=== PATIENT | male | born 1950 | race Caucasian/White ===

== ENCOUNTER 2016-10-31 15:55 | Inpatient (IN) | payer BC, MEDICARE ==
[2016-10-31] MEDS ORDERED: SENNOSIDES/DOCUSATE SODIUM UD CAPSULE PO PRN (17:49)
[2016-10-31] MEDS: NOVOLOG FLEXPEN (INSULIN ASPART) 100 UNITS/ML SQ SCH ×2 (18:19→22:12)
[2016-10-31] MEDS: METOCLOPRAMIDE 10 MG TABLET PO SCH (18:32)
[2016-10-31] MEDS: NYSTATIN 15 GM POWDER TP SCH (22:05)
[2016-10-31] MEDS: ATORVASTATIN 20 MG TABLET PO SCH (22:05)
[2016-10-31] MEDS: HYDRALAZINE HCL 25 MG TABLET PO SCH (22:06)
[2016-10-31] MEDS: CARVEDILOL 3.125 MG TABLET PO SCH (22:06)
[2016-10-31] MEDS: ACETAMINOPHEN 325 MG TAB PO PRN (22:41)
[2016-11-01] MEDS: PATIENT OWN MED: METHYLPHENIDATE 5 MG PO SCH ×2 (06:59→13:19)
[2016-11-01] MEDS: HYDRALAZINE HCL 25 MG TABLET PO SCH ×3 (06:59→23:08)
[2016-11-01] MEDS: PANTOPRAZOLE SODIUM 40 MG TABLET PO SCH (06:59)
[2016-11-01] MEDS: NOVOLOG FLEXPEN (INSULIN ASPART) 100 UNITS/ML SQ SCH ×4 (08:36→23:08)
[2016-11-01] MEDS ORDERED: LEVEMIR FLEXTOUCH 100 UNIT/ML INSULIN PEN SQ SCH (10:00)
--- NOTE | 2016-11-01 10:01 | Rehab Evaluation ---
Patient Information - Patient Information Diagnosis: RTKA Ordered Treatment: PT Evaluate and Treat Status: Initial Evaluation History: Detail (The patient was admitted to [facility] to the Swing Bed Unit for ongoing rehabilitation. 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 due to groin infection on 10/07/16.) Past Medical/Surgical Hx: PAST MEDICAL/SURGICAL HISTORY Past Surgical History hemorrhoidectomy x's 2. cholecystectomy, knee scope bilateral, exploratory laparotomy -> appendectomy, colonscopy rtbka, rtaka inguinal hernia, umbilical hernia PMH - Respiratory Hx Respiratory Disorders Yes Hx Bronchitis Yes: 01/08/2015 was on anbx and steroid PMH - Cardiovascular Hx Cardiovascular Disorders Yes Hx Cardiac Catheterization Yes Hx Heart Attack Yes: 2007 Hx Coronary Stent Yes: x's 2 Comment: no problems since 2007, hasn't had to see cardiology in 5years PMH - Neuro Hx Neurological Disorders Yes Hx Neuropathy Yes: bilateral neuropathy PMH - GI Hx Gastrointestinal Disorders No Hx Abdominal Pain Yes: RUQ Hx Hiatal Hernia Yes PMH - Hx Genitourinary Disorders No PMH - Endocrine Hx Endocrine Disorders Yes Hx Diabetes Yes Hx Thyroid Disease No Hx of NIDDM Yes: well controlled PMH - Musculoskeletal Hx Musculoskeletal Disorders Yes Hx Arthritis Yes PMH - Psych Hx Psychiatric Problems No PMH - Hematology/Oncology Hx Hematology/Oncology No Disorders Hx Anemia Yes Premorbid Status: Detail (The patient reports prior to AKA his primary mobility was wheelchair mobility and he completed stairclimbing by bumping up and down on his buttocks.) Social History: Detail (The patient lives in a third story apartment with his spouse. The patient states the apartment building does not have an elevator and he was completing the stairs by bumping up on his buttocks. His bathroom has a tub/shower combination with a seat and hand held shower and a regular toilet with a grab bar. The patient stated his son is going to acquire him a tub seat with a transfer bench. Prior to hospitalization the patient's was assisting him with bathing and dressing and the patient was completing light household tasks. The patient has a wheelchair and walker with 2 wheels.) Precautions: [place], Fall, Other (contact) - Time With Patient Total Time Spent With Patient (Min): 30 Treatment Procedures: Detail (Initial Evaluation.) Subjective Information - Subjective Information Per Patient (The patient has no complaints of pain.) Objective Data - Mental Status Patient Orientation: Oriented x3 - Visual Perception Appears within normal limits for therapeutic activities - ROM Within normal limits (The patient's L LE AROM is WNL. R residual limb ROM was WNL in abduction and adduction, hip flexion and extension were not assessed at this time.) - Strength/Tone Not within normal limits (The patient's L LE strength was generally 4+ to 5/5 except for hip flexors which are 4/5. The patient's R residual limb is functional and will be formally tested at a later date.) - Bed Mobility Independent (The patient was independent with supine to sit with head of bed elevated.) - Transfers Needs Assist (The patient acheived sit to and from stand with CG for safety only . The patient completed a bed to wheelchair transfer with use of wheeled walker with CG of 1 for safety.) - Balance Balance Sitting: Good Balance Standing: Poor (The patient required use of walker for support in standing.) - Gait Detail (The patient did not ambulate.) - Special Tests Yes (Wheelchair mobility: The patient propelled his wheelchair into bathroom 11 feet x 2 with use of both UE's and L LE independently. Inspection: The patient' s incision is healing well R transfemoral amputation.) Therapy Assessment - Therapy Assessment Detail (The patient requires CG supervision for safety with mobility and is nonambulatory. The patient also exhibits LE weakness. The patient is a good Rehab candidate.) Problem List - Problem List Physical Therapy Problem List: Detail (1) Non ambulatory 2) Supervision/contact gaurding with transfers for safety. 3) Decreased LE strength) Goals - Goals Physical Therapy Goals: 1) Assess R residual limb ROM and Strength. 2) The patient will be independent with all transfers. 3) The patient will be independent with AKA HEP and follow proper AKA prosthesis preparation precautions. 4) The patient will ambulate with wheeled walker household distances with supervision for safety. 5) Increase LE strength in weakened muscles 1/3 muscle grade. Prognosis - Prognosis Good Plan - Plan Physical Therapy Plan: PT M-F 1 to 2 times a day for gait and transfer training , LE strengthening exercises.
--- NOTE | 2016-11-01 10:02 | Rehab Evaluation ---
Patient Information - Patient Information Diagnosis: deconditioning d/t AKA Ordered Treatment: OT Evaluate and Treat Status: Initial Evaluation Surgery: Yes (right BKA 10/03/16, right AKA 10/15/16) Past Medical/Surgical Hx: PAST MEDICAL/SURGICAL HISTORY Past Surgical History hemorrhoidectomy x's 2. cholecystectomy, knee scope bilateral, exploratory laparotomy -> appendectomy, colonscopy rtbka, rtaka inguinal hernia, umbilical hernia PMH - Respiratory Hx Respiratory Disorders Yes Hx Bronchitis Yes: 01/08/2015 was on anbx and steroid PMH - Cardiovascular Hx Cardiovascular Disorders Yes Hx Cardiac Catheterization Yes Hx Heart Attack Yes: 2007 Hx Coronary Stent Yes: x's 2 Comment: no problems since 2007, hasn't had to see cardiology in 5years PMH - Neuro Hx Neurological Disorders Yes Hx Neuropathy Yes: bilateral neuropathy PMH - GI Hx Gastrointestinal Disorders No Hx Abdominal Pain Yes: RUQ Hx Hiatal Hernia Yes PMH - Hx Genitourinary Disorders No PMH - Endocrine Hx Endocrine Disorders Yes Hx Diabetes Yes Hx Thyroid Disease No Hx of NIDDM Yes: well controlled PMH - Musculoskeletal Hx Musculoskeletal Disorders Yes Hx Arthritis Yes PMH - Psych Hx Psychiatric Problems No PMH - Hematology/Oncology Hx Hematology/Oncology No Disorders Hx Anemia Yes Premorbid Status: Detail (Pt lives with in a 3rd floor apartment, no elevator. He reports he "butt bumps" up and down the stairs with assist from his and son. He is Ind with meal prep and washing dishes. His is responsible for home mgmt and laundry. He has not ambulated since his BKA in August,. He has a wheelchair and a 2 wheeled walker. He has a tub/shower combination with a hand held shower and tub bench but he is getting an extended tub bench as his current one is too small. He has a standard height toilet and uses the sink for transfers. His assists with showering and dressing but he is hoping to be Ind.) Social History: Detail (Pt reports having 7 children.) Precautions: [place], Fall - Time With Patient Total Time Spent With Patient (Min): 40 Treatment Procedures: Detail (OT eval low complexity) Subjective Information - Subjective Information Per Patient Objective Data - Pain Pain Present: No - Mental Status Patient Orientation: Oriented x3 - Visual Perception Appears within normal limits for therapeutic activities (Pt wears glasses for reading.) - ROM Within normal limits (Akz UE AROM WNL throughout.) - Strength/Tone Within normal limits (Kaz UE MMT 5/5 throughout.) - Coordination Appears within normal limits for therapeutic activities - Bed Mobility Independent (Ind with supine to sit with HOB elevated and use of side rails.) - Transfers Needs Assist (CG assist for transfer from EOB to wheelchair using walker.) - Balance Balance Sitting: Good Balance Standing: Good - Sensation Intact - Gait Detail (Ambulation not assessed at this time. Pt was Ind with wheelchair mobility in his room/bathroom.) - ADL's/IADL's Detail (Pt reports he is using the urinal at this time with assist from nursing. He was able to complete oral hygiene, brushing hair and washing face at sink Indly.) Therapy Assessment - Therapy Assessment Detail (Pt presents with WNL UE function, Ind with wheelchair mobility, decreased Ind with self care activities and decreased overall endurance needed for return home.) Problem List - Problem List Occupational Therapy Problem List: Detail (1. Decreased Ind with total body dressing 2. Decreased Ind with showering 3. Decreased endurance needed for safe and Ind return home.) Goals - Goals Occupational Therapy Goals: 1. Pt will be Ind with total body dressing 2. Pt will be Ind with showering 3. Pt will demonstrated improved endurance to allow safe and Ind ADLs/IADLs. Prognosis - Prognosis Good Plan - Plan Occupational Therapy Plan: OT 2-4 days per week to address self cares, functional mobility and overall endurance.
[2016-11-01 10:18] LABS: HEMATOCRIT 26.7 % (42.0-52.0); HEMOGLOBIN 8.5 gm/dl (14.0-18.0); MEAN CELL VOLUME 96.4 fl (81-97); MEAN CORPUSCULAR HGB CONC 31.8 g/dl (32-36); PLATELET COUNT 244 K/uL (130-400); RED BLOOD COUNT 2.77 M/uL (4.40-5.70); RED CELL DISTRIBUTION WIDTH 17.3 % (11.5-14.5); WHITE BLOOD COUNT W/O DIFF 12.5 K/uL (4.2-12.2)
[2016-11-01 10:21] LABS: MEAN CORPUSCULAR HEMOGLOBIN 30.6 pg (27-33)
[2016-11-01 10:38] LABS: CREATININE 2.7 mg/dL (0.66-1.25)
[2016-11-01] MEDS: ASPIRIN 81 MG TABEC PO SCH (11:19)
[2016-11-01] MEDS: AMLODIPINE BESYLATE 5MG TAB PO SCH (11:19)
[2016-11-01] MEDS: MULTIVITAMINS/MINERALS TABLET PO SCH (11:19)
[2016-11-01] MEDS: CARVEDILOL 3.125 MG TABLET PO SCH ×2 (11:20→23:07)
[2016-11-01] MEDS ORDERED: DARBEPOETIN 100 MCG/0.5 ML SQ ONE (11:30)
--- NOTE | 2016-11-01 11:44 | History & Physical ---
History of Present Illness - Date Date of Service for History & Physical: 11/01/16 - History of Present Illness Admitting Diagnosis: Deconditioning d/t amputation above the right knee History of Present Illness: 66yo male admitted to for deconditioning after prolonged hospitalization for complications of a BKA. PMHx of CAD (stent x2), DM, PVD (s.p multiple lower extremity stents) and BKA done on 08/29/16. Patient had presented to [facility] on 10/01/16 for RLE pain for 3 days. CTA revealed an occlusion of all vasculature and patient underwent R thrombectomy, R iliac stenting and R BKA debridement on 10/03/16. He then developed a groin infection with wound vac placement on 10/07. he was admitted to [facility] on 10/08. Had severe bleeding on 10/09 from the groin that required urgent ligation of the r external iliac, superficial femoral and profunda femoris arteries and an excision of infected [employer]. Was in [facility] ICU and underwent Right AKA at that time (10/15) instead of transfer to [facility] for a axillo-femoral graft. He suffered RICARDO due to sepsis and ATN from [facility]. He was also followed by ID for groin infection. Had NG tube placed on 10/18 that was removed 10/26. He saw neuropsych and was started on ritalin for neurofatigue which was helpful. His appetite continued to improve. He did require 2 RBC transfusions on 10/19 and 10/31. He was stable for discharge but required further therapy. Patient currently resides with in 3rd story apartment. He has no way of getting up and down aside from sitting on the ground and lifting himself up and down the stairs. They are trying to obtain a 1st floor apartment. 11/01/16- Patient states he is feeling much better. States he really feels like the ritalin has turned things around for him. Says his mood and energy levels are better than ever. He denies any pain in his right stump. He denies any changes with the wound vac. He is looking forward to working with PT/OT to regain his strength. He states his diabetes medications were changed around some while in the hospital. He had previously been on metformin which was stopped due to RICARDO. He was on levemir 30units twice daily at home and they only sent him home on 18 units once daily. General - Cognitive Patterns Orientation: Oriented x3, Person, Place, Time - Communication Preferred Language?: Syriac Mobile Developer Required: No Level of Education: College Preferred Method of Learning: Seeing, Doing, Reading Comprehension Ability: No Impairment Able to Read: Yes Able to Write: Yes Select best description of speech pattern: Clear Speech Ability to express ideas and wants: Understood Understanding verbal content: Understands - Psychosocial Well-Being Usual Living Arrangement: Spouse - Physical Functioning Activity Level: Up with assist x1 Turning: Self ad kathryn ROM Ability: Limited/Compromised Assistive Devices: Wheel Chair Ambulation Ability: Dependent Bed Mobility: Independent Bathing Ability: Dependent Personal Hygiene: Needs Assist Dressing Ability: Dependent Eating (Feeding) Ability: Independent Toileting Ability: Dependent Administer Own Medication: Dependent - Continence Bowel Pattern: Diarrhea Bladder Pattern: Normal - Dental Status Unable to examine: No Broken or loosely fitting full or partial dentures: No No natural teeth or tooth fragment(s) (edentulous): Yes Abnormal mouth tissue (ulcers, masses, oral lesions, etc.): No Obvious or likely cavity or broken natural teeth: No Inflamed or bleeding gums or loose natural teeth: No Mouth/facial pain, discomfort or difficulty chewing: Yes - Nutrition Screening Poor oral intake > 1 week: No Unplanned weight loss in specified time frame: Yes Nutrition Support via tube feedings or parenteral nutrition: No Pressure Ulcer: No Significantly underweight define as BMI <18.5 kg/m2: No Albumin <2.5mg/dL: No Persistent nausea/vomiting/diarrhea >3 days: No Difficulty chewing/swallowing/mouth sores: No Admitting Diagnosis: Yes Nutrition Risk Score: High Risk Review of Systems Constitutional: Reports: Weakness. Denies: Chills, Fever Eyes: Denies: Eye pain ENT: Denies: Congestion, Dental pain Respiratory: Denies: Cough, Dyspnea Cardiovascular: Denies: Chest pain, Edema Endocrine: Denies: Fatigue Gastrointestinal: Denies: Abdominal pain, Constipation, Diarrhea, Nausea Musculoskeletal: Denies: Arthralgia Skin: Reports: Change in color (has lesion left toe that podiatry evaluated while inpatient ) Neurological: Reports: Numbness (DM neuropathy) Psychiatric: Denies: Depression Past Medical History - SOCIAL HISTORY Smoking Status: Former smoker - SURGICAL HISTORY Past Surgical History: hemorrhoidectomy x's 2. cholecystectomy, knee scope bilateral, exploratory laparotomy -> appendectomy, colonscopy. rtbka, rtaka. inguinal hernia, umbilical hernia - RESPIRATORY Hx Respiratory Disorders: Yes Hx Bronchitis: Yes (01/08/2015 was on anbx and steroid) - CARDIOVASCULAR Hx Cardio Disorders: Yes Hx Cardiac Cath: Yes Hx Heart Attack: Yes (2007) Hx Coronary Stent: Yes (x's 2) Comment:: no problems since 2007, hasn't had to see cardiology in 5years - NEURO Hx Neuro Disorders: Yes Hx Neuropathy: Yes (bilateral neuropathy) - GI Hx GI Disorders: No Hx Hiatal Hernia: Yes - Hx Genitourinary Disorders: No - ENDOCRINE Hx Endocrine Disorders: Yes Hx Diabetes: Yes Hx Thyroid Disease: No - MUSCULOSKELETAL Hx Musculoskeletal Disorders: Yes Hx Arthritis: Yes - PSYCH Hx Psych Problems: No - HEMATOLOGY/ONCOLOGY Hx Hematology/Oncology Disorders: No Hx Anemia: Yes Hx Blood Transfusions: Yes Family Medical History Any Significant Family History?: Yes Hx Cancer: Father *Cancer Comment: colorectal Hx Diabetes: Father, Brother/Sister Hx Heart Disease: Father H&P Meds/Allergies - Allergies Allergies: Allergies Allergy/AdvReac Type Severity Reaction Status Date / Time No Known Drug Allergies Allergy Verified 01/31/15 14:48 - Home Medications Home Medications Medication Instructions Recorded Confirmed Last Taken Methylphenidate HCl [Ritalin] 5 mg PO QAM 10/31/16 10/31/16 Unknown - Active Medications Active Medications: Current Medications Acetaminophen (Tylenol 325mg) 650 mg PO Q6H PRN PRN Reason: MILD PAIN OR FEVER Last Admin: 10/31/16 22:41 Dose: 650 mg Amlodipine Besylate (Norvasc) 10 mg PO DAILY [facility] Last Admin: 11/01/16 11:19 Dose: 10 mg Aspirin (Ecotrin (Ec)) 81 mg PO DAILY [facility] Last Admin: 11/01/16 11:19 Dose: 81 mg Atorvastatin Calcium (Lipitor) 40 mg PO QHS [facility] Last Admin: 10/31/16 22:05 Dose: 40 mg Carvedilol (Coreg) 6.25 mg PO BID [facility] Last Admin: 11/01/16 11:20 Dose: 6.25 mg Clonidine HCl (Catapres Tts-3) 1 each TD Q7D [facility] Hydralazine HCl (Apresoline) 25 mg PO Q8HR [facility] Last Admin: 11/01/16 06:59 Dose: 25 mg Insulin Aspart (Novolog Flexpen) 0 unit SQ TIDINS [facility] PRN Reason: Protocol Insulin Detemir (Levemir Flextouch) 18 unit SQ DAILY [facility] Last Admin: 11/01/16 11:20 Dose: 18 unit Metoclopramide HCl (Reglan) 10 mg PO WMEALS [facility] Last Admin: 10/31/16 18:32 Dose: 10 mg Miscellaneous (Remove Patch) 1 each TD Q7D [facility] Multivitamins/Minerals (Centrum) 1 tab PO DAILY [facility] Last Admin: 11/01/16 11:19 Dose: 1 tab Nystatin (Nystop) 15 gm TP BID [facility] Last Admin: 10/31/16 22:05 Dose: Not Given Oxycodone/Acetaminophen (Percocet 10-325 Mg Tablet) 1 each PO Q6H PRN PRN Reason: MODERATE TO SEVERE PAIN Pantoprazole Sodium (Protonix) 40 mg PO DAILYAC [facility] Last Admin: 11/01/16 06:59 Dose: 40 mg Patient Own Med: (Methylphenidate 5 Mg) 1 each PO 0700,1200 [facility] Last Admin: 11/01/16 06:59 Dose: 1 each Senna/Docusate Sodium (Senna Plus) 2 each PO BID PRN PRN Reason: CONSTIPATION Last Admin: 11/01/16 11:20 Dose: 2 each Physical Exam - Vital Signs Vital Signs: Vital Signs - Last 24 Hrs Temp Pulse Resp BP BP Pulse Ox 11/01/16 10:50 98.6 F 109/63 11/01/16 08:00 98.6 F 71 18 104/58 97 10/31/16 20:00 98.6 F 71 18 109/63 97 10/31/16 16:30 98.3 F 74 18 98/62 97 - General General Appearance: Alert, Oriented x3, Cooperative, No acute distress - Head Head exam: Normal inspection - Eye Eye exam: Normal appearance, PERRL - ENT ENT exam: Normal exam, Mucous membranes moist, Normal external ear exam, Normal orophraynx, TM's normal bilaterally Ear exam: Normal external inspection. negative: External canal tenderness Nasal Exam: Normal inspection. negative: Discharge, Sinus tenderness Mouth exam: Normal external inspection, Tongue normal Teeth exam: Normal inspection. negative: Dental caries Throat exam: Normal inspection. negative: Tonsillar erythema, Tonsillar exudate - Neck Neck exam: Normal inspection, Full ROM. negative: Tenderness - Respiratory Respiratory exam: Normal lung sounds bilaterally. negative: Respiratory distress - Cardiovascular Cardiovascular Exam: Regular rate, Normal rhythm, Normal heart sounds - GI/Abdominal GI/Abdominal exam: Soft, Normal bowel sounds. negative: Tenderness - Rectal Rectal exam: Deferred - exam: Deferred - Back Back exam: Reports: Other (right AKA. ) - Neurological Neurological exam: Abnormal gait, Alert, Oriented X3, Reflexes normal - Psychiatric Psychiatric exam: Normal affect, Normal mood - Skin Skin exam: Dry, Warm, Other (right AKA wound healing very well) H&P Results - Labs Result Diagrams: 11/01/16 10:10 11/01/16 10:10 Labs Last 24 Hours: Laboratory Results - last 24 hr 10/31/16 11/01/16 11/01/16 17:00 07:29 10:10 WBC 12.5 H RBC 2.77 L Hgb 8.5 L Hct 26.7 L MCV 96.4 MCH 30.6 MCHC 31.8 L RDW 17.3 H Plt Count 244 MPV 9.0 Neutrophils % 71.0 Eosinophils % Not Reportable Basophils % Not Reportable Lymphocytes 19.0 Monocytes 10.0 H Sodium Potassium Chloride Carbon Dioxide Anion Gap BUN Creatinine Estimated GFR POC Glucose 243 H 250 H Random Glucose Calcium 11/01/16 10:10 WBC RBC Hgb Hct MCV MCH MCHC RDW Plt Count MPV Neutrophils % Eosinophils % Basophils % Lymphocytes Monocytes Sodium 138 Potassium 4.0 Chloride 102 Carbon Dioxide 27.0 Anion Gap 9.0 BUN 45 H Creatinine 2.7 H Estimated GFR 25 POC Glucose Random Glucose 338 H Calcium 7.8 L Discharge Potential - Discharge Needs Community Services Used Prior to Admission: Occupational Therapy, Physical Therapy, Transportation Patient Discharge Plan Description: Return Home Community Services Needed at Discharge: Occupational Therapy, Physical Therapy, Transportation, Pathways to Better Health Plan - Swing Bed Certification Initial Certification Due: 10/31/16 14 Day Re-Cert Due: 11/14/16 44 Day Re-Cert Due: 12/14/16 74 Day Re-Cert Due: 01/13/17 - Detailed Diagnosis and Plan (1) Physical deconditioning Current Visit: Yes Status: Acute Base Code: R53.81 - OTHER MALAISE Comment : 11/01/16- generalized deconditioning due to [facility] hospitalization -will work with pt/ot m-f to improve strength and physical functioning (2) S/P AKA (above knee amputation) Current Visit: Yes Status: Acute Base Code: Z89.619 - ACQUIRED ABSENCE OF UNSPECIFIED LEG ABOVE KNEE Comment: 11/01/16- wound healing very well. continue to monitor. Has appointment with Dr. Cadet Vascular surgery on 11/14 at 2pm. Wound vac in place right groin at second surgical spot following the ligation. finished course [facility] IV antibiotics while at [facility] but will continue with nystatin powder daily. -continue to monitor pain control -continue to monitor wound for secondary infection (3) Type 2 diabetes mellitus treated with insulin Current Visit: Yes Status: Acute Base Code: E11.9 - TYPE 2 DIABETES MELLITUS WITHOUT COMPLICATIONS; Z79.4 - RESIDENTIAL (CURRENT) USE OF INSULIN Comment: 11/01/16- uncontrolled. Patient had previously been on lantus 30 units bid prior to hospitalization and is only on 18 units once daily. -continue novolog aggressive sliding scale -increase levemir to 30 units sq daily. will continue to adjust long acting insulin based on total daily insulin requirements. -ada diet ordered (4) RICARDO (acute kidney injury) Current Visit: Yes Status: Acute Base Code: N17.9 - ACUTE KIDNEY FAILURE, UNSPECIFIED Comment: 11/01/16- Improving while at [facility]. Nephrology recommends continued monitoring of CMP and avoiding nephrotoxic agents -repeat cmp showed improvement from BUN and Cr yesterday. egFR is up from 24 yesterday as well. (5) Anemia Current Visit: Yes Status: Acute Qualifiers: Other causes of anemia: acute posthemorrhagic Base Code: D64.9 - ANEMIA, UNSPECIFIED Comment: 11/01/16- [facility] recommends repeat CBC. had transfusion of 1 unit on 10/31/16. anemia 2/2 to acute blood loss as well as chronic anemia for chronic renal insufficiency -repeat cbc shows hgb up from 6.9 to 8.4 today -plan to start aranesp per [facility] today. pharmacy to follow (6) HTN (hypertension) Current Visit: Yes Status: Acute Base Code: I10 - ESSENTIAL (PRIMARY) HYPERTENSION Comment: 11/01/16- well controlled with multiple agents. -will continue to monitor
[2016-11-01] MEDS: NYSTATIN 15 GM POWDER TP SCH ×2 (13:19→23:21)
[2016-11-01] MEDS: OXYCODONE/APAP 10MG-325MG TABLET PO PRN (15:39)
[2016-11-01] MEDS: ATORVASTATIN 20 MG TABLET PO SCH (23:07)
[2016-11-02] MEDS: PATIENT OWN MED: METHYLPHENIDATE 5 MG PO SCH ×2 (07:00→16:21)
[2016-11-02] MEDS: PANTOPRAZOLE SODIUM 40 MG TABLET PO SCH (07:05)
[2016-11-02] MEDS: METOCLOPRAMIDE 10 MG TABLET PO SCH ×4 (07:05→19:05)
[2016-11-02] MEDS: HYDRALAZINE HCL 25 MG TABLET PO SCH ×3 (07:08→22:24)
[2016-11-02] MEDS: NOVOLOG FLEXPEN (INSULIN ASPART) 100 UNITS/ML SQ SCH ×3 (08:16→17:55)
[2016-11-02] MEDS: MULTIVITAMINS/MINERALS TABLET PO SCH (10:39)
[2016-11-02] MEDS: CARVEDILOL 3.125 MG TABLET PO SCH ×2 (10:40→22:24)
[2016-11-02] MEDS: ASPIRIN 81 MG TABEC PO SCH (10:40)
[2016-11-02] MEDS: AMLODIPINE BESYLATE 5MG TAB PO SCH (10:41)
[2016-11-02] MEDS: LEVEMIR FLEXTOUCH 100 UNIT/ML INSULIN PEN SQ SCH (10:44)
[2016-11-02] MEDS: NYSTATIN 15 GM POWDER TP SCH ×3 (10:45→22:23)
[2016-11-02] MEDS: ATORVASTATIN 20 MG TABLET PO SCH (22:24)
[2016-11-03] MEDS: HYDRALAZINE HCL 25 MG TABLET PO SCH ×3 (06:21→21:28)
[2016-11-03] MEDS: PANTOPRAZOLE SODIUM 40 MG TABLET PO SCH (06:21)
[2016-11-03] MEDS: PATIENT OWN MED: METHYLPHENIDATE 5 MG PO SCH ×2 (06:22→12:21)
[2016-11-03] MEDS: NOVOLOG FLEXPEN (INSULIN ASPART) 100 UNITS/ML SQ SCH ×3 (08:34→17:37)
[2016-11-03] MEDS: METOCLOPRAMIDE 10 MG TABLET PO SCH ×3 (08:35→17:40)
[2016-11-03] MEDS: CARVEDILOL 3.125 MG TABLET PO SCH ×2 (11:06→21:29)
[2016-11-03] MEDS: MULTIVITAMINS/MINERALS TABLET PO SCH (11:06)
[2016-11-03] MEDS: ASPIRIN 81 MG TABEC PO SCH (11:07)
[2016-11-03] MEDS: LEVEMIR FLEXTOUCH 100 UNIT/ML INSULIN PEN SQ SCH (11:07)
[2016-11-03] MEDS: AMLODIPINE BESYLATE 5MG TAB PO SCH (11:08)
[2016-11-03] MEDS: NYSTATIN 15 GM POWDER TP SCH ×2 (11:09→21:30)
[2016-11-03] MEDS ORDERED: SENNOSIDES/DOCUSATE SODIUM UD CAPSULE PO PRN (12:29)
--- NOTE | 2016-11-03 16:28 | Swing Bed Certification/Recert ---
Initial Certification Due: 10/31/16 14 Day Re-Cert Due: 11/14/16 44 Day Re-Cert Due: 12/14/16 74 Day Re-Cert Due: 01/13/17 CERTIFICATION 3 CERTIFICATION OF PATIENT ADMISSION Required at time of admission. Due: 10/31/16 I certify that SNF services are required to be given on an inpatient basis because of the above named patient's need for [facility] care on a continuing basis for the condition(s) for which he/she was receiving inpatient hospital services prior to his/her transfer to the SNF. The patient's current needs for skilled care includes: [physical deconditioning , right AKA, wound vac in place] Chanell Ornelas 10/31/16
[2016-11-03] MEDS: ATORVASTATIN 20 MG TABLET PO SCH (21:28)
[2016-11-03] MEDS ORDERED: NOVOLOG FLEXPEN (INSULIN ASPART) 100 UNITS/ML SQ ONE (22:52)
[2016-11-04] MEDS: HYDRALAZINE HCL 25 MG TABLET PO SCH ×3 (05:58→21:50)
[2016-11-04] MEDS: PANTOPRAZOLE SODIUM 40 MG TABLET PO SCH (06:51)
[2016-11-04] MEDS: PATIENT OWN MED: METHYLPHENIDATE 5 MG PO SCH ×2 (06:51→12:07)
[2016-11-04] MEDS: NOVOLOG FLEXPEN (INSULIN ASPART) 100 UNITS/ML SQ SCH ×3 (08:23→17:26)
[2016-11-04] MEDS: METOCLOPRAMIDE 10 MG TABLET PO SCH ×3 (08:23→17:30)
--- NOTE | 2016-11-04 08:28 | Occupational Therapy Tx Note ---
Occupational Therapy Tx Note - Treatment Note Tolerated: Good Total Time Spent With Patient: 50 (ADL) Occupational Therapy Treatment Note: Detail (S: Pt awake and feeling good today. O: Supine to sit Indly with bed rails. Stand pivot transferred from EOB to wheelchair with assist for wound vac line. Pt propelled self to toilet and stand pivot transferred Indly. Doffed shorts and briefs and toileted Indly with verbal cues for hygiene. Transferred to wheelchair and then to shower bench with verbal cues. Doffed tshirt Indly. Pt completed showering in sitting with hand held shower Indly. Dried self Indly. Donned t-shirt Indly, donned briefs and shorts with assist to supervisor pullet farm hips while in standing. Transferred to EOB Indly. Pt donned sock with modified technique and verbal cues. A: Min assist for dressing, Ind with showering in sitting, min assist for transfers due to wound vac line, pt fatigued after ADLs.) Occupational Therapy Problem List: Detail (1. Decreased Ind with total body dressing 2. Decreased Ind with showering 3. Decreased endurance needed for safe and Ind return home.) Occupational Therapy Goals: 1. Pt will be Ind with total body dressing 2. Pt will be Ind with showering 3. Pt will demonstrated improved endurance to allow safe and Ind ADLs/IADLs. Prognosis: Good Occupational Therapy Plan: OT 2-4 days per week to address self cares, functional mobility and overall endurance.
[2016-11-04] MEDS: CLONIDINE TOP SCH (09:40)
[2016-11-04] MEDS: [UNRECOGNIZED DRUG - OTHER] TOP SCH (09:40)
[2016-11-04] MEDS: CLONIDINE TTS-0.1MG PATCH TD SCH (09:40)
[2016-11-04] MEDS: MULTIVITAMINS/MINERALS TABLET PO SCH (09:44)
[2016-11-04] MEDS: CARVEDILOL 3.125 MG TABLET PO SCH ×2 (09:44→21:51)
[2016-11-04] MEDS: ASPIRIN 81 MG TABEC PO SCH (09:44)
[2016-11-04] MEDS: OXYCODONE/APAP 10MG-325MG TABLET PO PRN (09:44)
[2016-11-04] MEDS: AMLODIPINE BESYLATE 5MG TAB PO SCH (09:45)
[2016-11-04] MEDS: REMOVE PATCH 1 EACH MISC TD SCH (09:48)
[2016-11-04] MEDS: NYSTATIN 15 GM POWDER TP SCH ×2 (09:49→21:51)
[2016-11-04] MEDS ORDERED: LEVEMIR FLEXTOUCH 100 UNIT/ML INSULIN PEN SQ SCH (10:00)
[2016-11-04] MEDS: ATORVASTATIN 20 MG TABLET PO SCH (21:51)
[2016-11-04] MEDS: LEVEMIR FLEXTOUCH 100 UNIT/ML INSULIN PEN SQ SCH (21:52)
[2016-11-05] MEDS: HYDRALAZINE HCL 25 MG TABLET PO SCH ×3 (06:14→22:39)
[2016-11-05] MEDS: PANTOPRAZOLE SODIUM 40 MG TABLET PO SCH (06:14)
[2016-11-05] MEDS: PATIENT OWN MED: METHYLPHENIDATE 5 MG PO SCH ×2 (06:16→12:08)
[2016-11-05 06:35] LABS: HEMATOCRIT 24.8 % (42.0-52.0); HEMOGLOBIN 7.8 gm/dl (14.0-18.0); MEAN CELL VOLUME 96.5 fl (81-97); MEAN CORPUSCULAR HGB CONC 31.5 g/dl (32-36); MEAN PLATELET VOLUME 9.5 fl (7.4-10.4); PLATELET COUNT 264 K/uL (130-400); RED BLOOD COUNT 2.57 M/uL (4.40-5.70); RED CELL DISTRIBUTION WIDTH 15.7 % (11.5-14.5); WHITE BLOOD COUNT W/O DIFF 12.7 K/uL (4.2-12.2)
[2016-11-05 06:37] LABS: MEAN CORPUSCULAR HEMOGLOBIN 30.3 pg (27-33)
[2016-11-05 06:48] LABS: ALB/GLOB RATIO 0.8 (1.1-1.8); ALBUMIN 2.6 gm/dL (3.5-5.0); ANION GAP 8.5 (7-16); BILIRUBIN,TOTAL 0.29 mg/dL (0.2-1.3); CARBON DIOXIDE 25.5 mmol/L (22-30); CREATININE 2.1 mg/dL (0.66-1.25); TOTAL PROTEIN 5.7 gm/dL (6.3-8.2)
[2016-11-05 06:55] LABS: HYPOCHROMIA 1+; PLATELET ESTIMATE NORMAL (NORMAL)
[2016-11-05] MEDS: NOVOLOG FLEXPEN (INSULIN ASPART) 100 UNITS/ML SQ SCH ×4 (07:45→22:43)
[2016-11-05] MEDS: METOCLOPRAMIDE 10 MG TABLET PO SCH ×3 (07:45→17:08)
--- NOTE | 2016-11-05 08:14 | Physical Therapy Tx Note ---
Physical Therapy Tx Note - Treatment Note Tolerated: Good Total Time Spent With Patient: 45 Physical Therapy Tx Note: Detail (Pt in bed upon arrival, awake/alert, cooperative for therapy. Preferred to exercise in room instead of going up to therapy area. Performed 10 reps each of L LE SLR, SAQ, hip add, hip abd w/ green t-band, ankle pf w green t-band; R hip flexion, sidelying hip extension, sidelying hip abd (B). Reviewed glut sets, quad sets. Performed 10 reps each B of shoulder horizontal abduction, flexion, pulldown, biceps curls, all w/ green t-band. Provided pt w/green and blue t-bands to exercise as he desires b/ t sessions. Tolerated all exercises well. Spoke w/nrsg about placement of R groin dressing, requesting R hip in relative extension when applying, to help avoid tape pulling on skin w/exercises. Pt left in bed w/call light in reach.) Physical Therapy Problem List: Detail (1) Non ambulatory 2) Supervision/contact gaurding with transfers for safety. 3) Decreased LE strength) Physical Therapy Goals: 1) Assess R residual limb ROM and Strength. 2) The patient will be independent with all transfers. 3) The patient will be independent with AKA HEP and follow proper AKA prosthesis preparation precautions. 4) The patient will ambulate with wheeled walker household distances with supervision for safety. 5) Increase LE strength in weakened muscles 1/3 muscle grade. Prognosis: Good Physical Therapy Plan: PT M-F 1 to 2 times a day for gait and transfer training , LE strengthening exercises.
[2016-11-05] MEDS: MULTIVITAMINS/MINERALS TABLET PO SCH (09:04)
[2016-11-05] MEDS: ASPIRIN 81 MG TABEC PO SCH (09:04)
[2016-11-05] MEDS: LEVEMIR FLEXTOUCH 100 UNIT/ML INSULIN PEN SQ SCH ×2 (09:05→22:41)
[2016-11-05] MEDS: NYSTATIN 15 GM POWDER TP SCH ×2 (09:09→22:45)
[2016-11-05] MEDS: CARVEDILOL 3.125 MG TABLET PO SCH ×2 (09:10→22:40)
[2016-11-05] MEDS: AMLODIPINE BESYLATE 5MG TAB PO SCH (09:10)
--- NOTE | 2016-11-05 10:39 | Physical Therapy Tx Note ---
Physical Therapy Tx Note - Treatment Note Physical Therapy Tx Note: Detail (The patient was sleeping when PT arrived. The patient refused PT due to fatigue. The patient stated he did not sleep well due to back pain.) Physical Therapy Problem List: Detail (1) Non ambulatory 2) Supervision/contact gaurding with transfers for safety. 3) Decreased LE strength) Physical Therapy Goals: 1) Assess R residual limb ROM and Strength. 2) The patient will be independent with all transfers. 3) The patient will be independent with AKA HEP and follow proper AKA prosthesis preparation precautions. 4) The patient will ambulate with wheeled walker household distances with supervision for safety. 5) Increase LE strength in weakened muscles 1/3 muscle grade. Physical Therapy Plan: PT M-F 1 to 2 times a day for gait and transfer training , LE strengthening exercises.
[2016-11-05] MEDS: ACETAMINOPHEN 325 MG TAB PO PRN (12:03)
--- NOTE | 2016-11-05 15:02 | Physical Therapy Tx Note ---
Physical Therapy Tx Note - Treatment Note Tolerated: Good Total Time Spent With Patient: 40 Physical Therapy Tx Note: Detail (Pt was in bathroom using the facilities. Assisted pt. in cleaning after using the bathroom. Pt transferred to wheel chair. Pt wheeled himself x 200 ft. towards elevator. SOFTWARE DEVELOPMENT PROJECT MANAGER wheeled the rest of the way to the elevator and up to rehab. Pt transferred to treatment table independently. Pt completed ex's of LAQ x 10 on left. Pt completed theraband left ankle 4 directions, Left HS curl all x 15 each. Supine hip flexion x 10 bilateral. Right Leg hip extension, sidelying adduction x 10 each. bilateral glute squeeze 5 second hold and x 15. isometric abdominal contraction. 5 second hold x 15. Pt returned to wheelchair by completing bed mobility independently and transfer independently. Pt was wheeled back to room by SOFTWARE DEVELOPMENT PROJECT MANAGER. Pt was left in wheelchair with pump plugged in and call light within reach. Pt states fatigued after treatment. Pt doing well with ex's and resistance with green theraband.) Physical Therapy Problem List: Detail (1) Non ambulatory 2) Supervision/contact gaurding with transfers for safety. 3) Decreased LE strength) Physical Therapy Goals: 1) Assess R residual limb ROM and Strength. 2) The patient will be independent with all transfers. 3) The patient will be independent with AKA HEP and follow proper AKA prosthesis preparation precautions. 4) The patient will ambulate with wheeled walker household distances with supervision for safety. 5) Increase LE strength in weakened muscles 1/3 muscle grade. Prognosis: Good Physical Therapy Plan: PT M-F 1 to 2 times a day for gait and transfer training , LE strengthening exercises.
[2016-11-05] MEDS: OXYCODONE/APAP 10MG-325MG TABLET PO PRN (22:37)
[2016-11-05] MEDS: ATORVASTATIN 20 MG TABLET PO SCH (22:40)
[2016-11-06] MEDS: OXYCODONE/APAP 10MG-325MG TABLET PO PRN ×2 (07:00→15:47)
[2016-11-06] MEDS: PATIENT OWN MED: METHYLPHENIDATE 5 MG PO SCH ×2 (07:00→11:58)
[2016-11-06] MEDS: HYDRALAZINE HCL 25 MG TABLET PO SCH ×3 (07:00→21:21)
[2016-11-06] MEDS: PANTOPRAZOLE SODIUM 40 MG TABLET PO SCH (07:00)
[2016-11-06] MEDS: NOVOLOG FLEXPEN (INSULIN ASPART) 100 UNITS/ML SQ SCH ×3 (08:21→21:27)
[2016-11-06] MEDS: METOCLOPRAMIDE 10 MG TABLET PO SCH ×4 (08:22→18:22)
[2016-11-06] MEDS: LEVEMIR FLEXTOUCH 100 UNIT/ML INSULIN PEN SQ SCH ×2 (10:13→21:29)
[2016-11-06] MEDS: MULTIVITAMINS/MINERALS TABLET PO SCH (10:14)
[2016-11-06] MEDS: ASPIRIN 81 MG TABEC PO SCH (10:14)
[2016-11-06] MEDS: AMLODIPINE BESYLATE 5MG TAB PO SCH (10:16)
[2016-11-06] MEDS: CARVEDILOL 3.125 MG TABLET PO SCH ×2 (10:16→21:17)
[2016-11-06] MEDS: NYSTATIN 15 GM POWDER TP SCH ×2 (10:22→21:30)
--- NOTE | 2016-11-06 15:57 | Physical Therapy Tx Note ---
Physical Therapy Tx Note - Treatment Note Tolerated: Good Total Time Spent With Patient: 60 Physical Therapy Tx Note: Detail (The patient propelled self to Rehab department 150 feet in wheelchair. The patient ambulated with wheeled walker 5 steps with CG of 1. The Patient complete sitting balance exercises reaching for cones, tying shoes. The patient completed LE exercises with blue T- band: marching x 10 reps, LAQ and Hamstring curls x 15 reps, adductor squeezes x 15 reps, sidelying AKA hip abduction and extension x15. Patient was fatigued following treatment.) Physical Therapy Problem List: Detail (1) Non ambulatory 2) Supervision/contact gaurding with transfers for safety. 3) Decreased LE strength) Physical Therapy Goals: 1) Assess R residual limb ROM and Strength. 2) The patient will be independent with all transfers. 3) The patient will be independent with AKA HEP and follow proper AKA prosthesis preparation precautions. 4) The patient will ambulate with wheeled walker household distances with supervision for safety. 5) Increase LE strength in weakened muscles 1/3 muscle grade. Physical Therapy Plan: PT M-F 1 to 2 times a day for gait and transfer training , LE strengthening exercises.
[2016-11-06] MEDS: ATORVASTATIN 20 MG TABLET PO SCH (21:17)
[2016-11-07] MEDS: PATIENT OWN MED: METHYLPHENIDATE 5 MG PO SCH ×2 (06:18→13:20)
[2016-11-07] MEDS: PANTOPRAZOLE SODIUM 40 MG TABLET PO SCH (06:18)
[2016-11-07] MEDS: HYDRALAZINE HCL 25 MG TABLET PO SCH ×4 (06:18→21:36)
[2016-11-07] MEDS: MULTIVITAMINS/MINERALS TABLET PO SCH (10:38)
[2016-11-07] MEDS: METOCLOPRAMIDE 10 MG TABLET PO SCH ×3 (10:38→21:48)
[2016-11-07] MEDS: CARVEDILOL 3.125 MG TABLET PO SCH ×2 (10:39→21:36)
[2016-11-07] MEDS: ASPIRIN 81 MG TABEC PO SCH (10:39)
[2016-11-07] MEDS: AMLODIPINE BESYLATE 5MG TAB PO SCH (10:39)
[2016-11-07] MEDS: NYSTATIN 15 GM POWDER TP SCH ×2 (10:40→21:49)
[2016-11-07] MEDS: LEVEMIR FLEXTOUCH 100 UNIT/ML INSULIN PEN SQ SCH ×2 (10:42→21:36)
[2016-11-07] MEDS: NOVOLOG FLEXPEN (INSULIN ASPART) 100 UNITS/ML SQ SCH ×3 (11:05→17:18)
--- NOTE | 2016-11-07 15:54 | Physical Therapy Tx Note ---
Physical Therapy Tx Note - Treatment Note Tolerated: Good (Pt. reported slight fatigue to end tx with no reports of pain.) Total Time Spent With Patient: 50 Physical Therapy Tx Note: Detail (Pt. ambulated with CGA and front wheeled walker for 8 steps before requesting break. Pt. I transferred himself to bed. Pt. performed seated hip marches, LAQ, hip abduction, hip adduction, knee flexion, ankle dorsiflexion, and plantarflexion with blue band 10x each. Pt. performed SLR with blue band 10x while supine. Pt. performed rhythmic stabilization for the LLE while supine that consisted of hip IR<->ER, knee flexion<->extension 20x each. Pt. was left supine with call light available.) Physical Therapy Problem List: Detail (1) Non ambulatory 2) Supervision/contact gaurding with transfers for safety. 3) Decreased LE strength) Physical Therapy Goals: 1) Assess R residual limb ROM and Strength. 2) The patient will be independent with all transfers. 3) The patient will be independent with AKA HEP and follow proper AKA prosthesis preparation precautions. 4) The patient will ambulate with wheeled walker household distances with supervision for safety. 5) Increase LE strength in weakened muscles 1/3 muscle grade. Prognosis: Good Physical Therapy Plan: PT M-F 1 to 2 times a day for gait and transfer training , LE strengthening exercises.
--- NOTE | 2016-11-07 19:10 | Physician Progress Note ---
Subjective - Date Date of Physician Progress Note: 11/08/16 - Subjective Subjective Comment: patient lying in bed comfortably. states he's feeling tired after therapy this morning. He states o/w, he's feeling quite well. no concerns. feels like he' s getting stronger. denies fever, chills, n/v/abd pain, cough, sob, lower extremity pain. tolerating meals well. normal GI/ output. Objective - Vital Signs Vital Signs: Vital Signs - Last 24 Hrs Temp Pulse Resp BP BP BP Pulse Ox 11/07/16 10:58 97.8 F 144/70 11/07/16 08:00 97.8 F 68 16 144/70 97 11/06/16 20:00 99.1 F 76 18 119/64 96 - General General Appearance: Alert, Oriented x3, Cooperative, No acute distress - Head Head exam: Normal inspection - Eye Eye exam: Normal appearance, PERRL - ENT ENT exam: Normal exam, Mucous membranes moist, Normal external ear exam, Normal orophraynx, TM's normal bilaterally Ear exam: Normal external inspection. negative: External canal tenderness Nasal Exam: Normal inspection. negative: Discharge, Sinus tenderness Mouth exam: Normal external inspection, Tongue normal Teeth exam: Normal inspection. negative: Dental caries Throat exam: Normal inspection. negative: Tonsillar erythema, Tonsillar exudate - Neck Neck exam: Normal inspection, Full ROM. negative: Tenderness - Respiratory Respiratory exam: Normal lung sounds bilaterally. negative: Respiratory distress - Cardiovascular Cardiovascular Exam: Regular rate, Normal rhythm, Normal heart sounds - GI/Abdominal GI/Abdominal exam: Soft, Normal bowel sounds. negative: Tenderness - Rectal Rectal exam: Deferred - exam: Deferred - Back Back exam: Reports: Other (right AKA. ) - Neurological Neurological exam: Abnormal gait, Alert, Oriented X3, Reflexes normal - Psychiatric Psychiatric exam: Normal affect, Normal mood - Skin Skin exam: Dry, Warm, Other (right AKA wound healing very well) Assessment and Plan - Assessment and Plan (1) S/P AKA (above knee amputation) Current Visit: Yes Status: Acute Base Code: Z89.619 - ACQUIRED ABSENCE OF UNSPECIFIED LEG ABOVE KNEE Comment: 11/08/16- wound healing very well. continue to monitor. Has appointment with Dr. Cadet [facility] surgery on 11/14 at 2pm. Wound vac in place right groin at second surgical spot following the ligation. finished course of IV antibiotics while at [facility] thumb region but will continue with nystatin powder daily. -continue to monitor pain control -continue to monitor wound for secondary infection (2) Physical deconditioning Current Visit: Yes Status: Acute Base Code: R53.81 - OTHER MALAISE Comment : 11/08/16- generalized deconditioning due to assisted hospitalization -will work with pt/ot m-f to improve strength and physical functioning (3) Full code status Current Visit: Yes Status: Acute Base Code: Z78.9 - OTHER SPECIFIED HEALTH STATUS Comment: 11/08/16- pt is full code (4) RICARDO (acute kidney injury) Current Visit: Yes Status: Acute Base Code: N17.9 - ACUTE KIDNEY FAILURE, UNSPECIFIED Comment: 11/08/16- Improving while at [facility]. Nephrology recommends continued monitoring of CMP and avoiding nephrotoxic agents -repeat cmp showed improvement from BUN and Cr improving. (5) Anemia Current Visit: Yes Status: Acute Qualifiers: Other causes of anemia: acute posthemorrhagic Base Code: D64.9 - ANEMIA, UNSPECIFIED Comment: 11/08/16- [facility] recommends repeat CBC. had transfusion of 1 unit on 10/31/16. anemia 2/2 to acute blood loss as well as chronic anemia for chronic renal insufficiency - h/h stable 11/08, will continue to monitor. (6) HTN (hypertension) Current Visit: Yes Status: Acute Base Code: I10 - ESSENTIAL (PRIMARY) HYPERTENSION Comment: 11/08/16- well controlled with multiple agents. -will continue to monitor (7) Type 2 diabetes mellitus treated with insulin Current Visit: Yes Status: Acute Base Code: E11.9 - TYPE 2 DIABETES MELLITUS WITHOUT COMPLICATIONS; Z79.4 - TRAVEL COTA (CURRENT) USE OF INSULIN Comment: 11/08/16- uncontrolled. Patient had previously been on lantus 30 units bid prior to hospitalization and is only on 18 units once daily. -continue novolog aggressive sliding scale -increase levemir to 30 units sq daily. will continue to adjust long acting insulin based on total daily insulin requirements. -ada diet ordered Results - Labs Result Diagrams: 11/08/16 06:10 11/08/16 06:10 Labs Last 24 Hours: Laboratory Results - last 24 hr 11/06/16 11/07/1611/07/17 21:45 08:00 08:07 POC Glucose 261 H 208 H 67 L 11/07/16 11/07/16 11:30 17:18 POC Glucose 175 H 171 H DVT/PE Assessment - Risk for VTE Risk for VTE: No Risk Level: Moderate Risk Assessment Date: 11/08/16 Risk Assessment Time: 11:00 VTE Orders Placed or Will Be Placed: Yes VTE Reason for No Prophylaxis: Not Indicated (surgeon has patient on ASA 81 mg qd) - Active Medicaitons Current Medications: Current Medications Acetaminophen (Tylenol 325mg) 650 mg PO Q6H PRN PRN Reason: MILD PAIN OR FEVER Last Admin: 11/05/16 12:03 Dose: 650 mg Amlodipine Besylate (Norvasc) 10 mg PO DAILY [facility] Last Admin: 11/07/16 10:39 Dose: 10 mg Aspirin (Ecotrin (Ec)) 81 mg PO DAILY [facility] Last Admin: 11/07/16 10:39 Dose: 81 mg Atorvastatin Calcium (Lipitor) 40 mg PO QHS [facility] Last Admin: 11/06/16 21:17 Dose: 40 mg Carvedilol (Coreg) 6.25 mg PO BID [facility] Last Admin: 11/07/16 10:39 Dose: 6.25 mg Clonidine HCl (Catapres Tts-2) 1 each TOP Q7D [facility] Last Admin: 11/04/16 09:40 Dose: 1 each Clonidine HCl (Catapres Tts-1) 1 each TD Q7D [facility] Last Admin: 11/04/16 09:40 Dose: 1 each Darbepoetin Tone (Aranesp) 100 mcg SQ Fr [facility] Hydralazine HCl (Apresoline) 25 mg PO Q8HR [facility] Last Admin: 11/07/16 17:09 Dose: 25 mg Insulin Aspart (Novolog Flexpen) 0 unit SQ TIDINS [facility] PRN Reason: Protocol Last Admin: 11/07/16 17:18 Dose: 10 unit Insulin Detemir (Levemir Flextouch) 30 unit SQ BID [facility] Last Admin: 11/07/16 10:42 Dose: 30 unit Metoclopramide HCl (Reglan) 10 mg PO WMEALS [facility] Last Admin: 11/07/16 13:19 Dose: 10 mg Miscellaneous (Remove Patch) 1 each TD Q7D [facility] Last Admin: 11/04/16 09:48 Dose: 1 each Multivitamins/Minerals (Centrum) 1 tab PO DAILY [facility] Last Admin: 11/07/16 10:38 Dose: 1 tab Nystatin (Nystop) 15 gm TP BID [facility] Last Admin: 11/07/16 10:40 Dose: Not Given Oxycodone/Acetaminophen (Percocet 10-325 Mg Tablet) 1 each PO Q6H PRN PRN Reason: MODERATE TO SEVERE PAIN Last Admin: 11/06/16 15:47 Dose: 1 each Pantoprazole Sodium (Protonix) 40 mg PO DAILYAC [facility] Last Admin: 11/07/16 06:18 Dose: 40 mg Patient Own Med: (Methylphenidate 5 Mg) 1 each PO 0700,1200 [facility] Last Admin: 11/07/16 13:20 Dose: 1 each Senna/Docusate Sodium (Senna Plus) 2 each PO BID PRN PRN Reason: CONSTIPATION AMI Plan - Labs Result Diagrams: 11/08/16 06:10 11/08/16 06:10
[2016-11-07] MEDS: ATORVASTATIN 20 MG TABLET PO SCH (21:36)
[2016-11-07] MEDS: OXYCODONE/APAP 10MG-325MG TABLET PO PRN (23:56)
[2016-11-08] MEDS: HYDRALAZINE HCL 25 MG TABLET PO SCH ×3 (06:11→21:58)
[2016-11-08] MEDS: PATIENT OWN MED: METHYLPHENIDATE 5 MG PO SCH ×2 (06:11→12:07)
[2016-11-08] MEDS: PANTOPRAZOLE SODIUM 40 MG TABLET PO SCH (06:11)
[2016-11-08 06:44] LABS: HEMATOCRIT 25.1 % (42.0-52.0); HEMOGLOBIN 7.8 gm/dl (14.0-18.0); MEAN CELL VOLUME 96.2 fl (81-97); MEAN CORPUSCULAR HGB CONC 31.1 g/dl (32-36); MEAN PLATELET VOLUME 9.4 fl (7.4-10.4); PLATELET COUNT 304 K/uL (130-400); RED BLOOD COUNT 2.61 M/uL (4.40-5.70); RED CELL DISTRIBUTION WIDTH 15.7 % (11.5-14.5); WHITE BLOOD COUNT W/O DIFF 11.3 K/uL (4.2-12.2)
[2016-11-08 06:45] LABS: MEAN CORPUSCULAR HEMOGLOBIN 29.8 pg (27-33)
[2016-11-08 06:54] LABS: ALB/GLOB RATIO 0.8 (1.1-1.8); ALBUMIN 2.6 gm/dL (3.5-5.0); ANION GAP 9.6 (7-16); BILIRUBIN,TOTAL 0.33 mg/dL (0.2-1.3); CARBON DIOXIDE 27.4 mmol/L (22-30); CREATININE 1.8 mg/dL (0.66-1.25); TOTAL PROTEIN 5.8 gm/dL (6.3-8.2)
[2016-11-08 07:11] LABS: HYPOCHROMIA 1+; PLATELET ESTIMATE NORMAL (NORMAL)
[2016-11-08] MEDS: METOCLOPRAMIDE 10 MG TABLET PO SCH ×3 (08:12→17:35)
[2016-11-08] MEDS: OXYCODONE/APAP 10MG-325MG TABLET PO PRN (08:12)
[2016-11-08] MEDS: NOVOLOG FLEXPEN (INSULIN ASPART) 100 UNITS/ML SQ SCH ×3 (08:13→17:34)
--- NOTE | 2016-11-08 08:20 | Occupational Therapy Tx Note ---
Occupational Therapy Tx Note - Treatment Note Tolerated: Good Total Time Spent With Patient: 45 (ADL) Occupational Therapy Treatment Note: Detail (S: Pt reports he did not sleep well and is very tired today. O: Supine to sit with bed rails Indly. Stand pivot transfer from EOB to wheelchair Indly. Pt propelled self to shower with assist for wound vac. Stand pivot transfer to shower bench with SBA. Pt doffed t-shirt, shorts, briefs and sock with SBA to stand and pull pants over hips. Pt completed showering with assist to wash back and supervision to stand with walker and wash buttocks. Pt dried self Indly. Pivot transferred to wheelchair with walker and completed shaving at sink Indly. Pt donned t-shirt, briefs, shorts and sock with supervision to stand and pull pants over hips. A: Showering in sitting with assist for back and supervision for standing, Ind with dressing with supervision for standing) Occupational Therapy Problem List: Detail (1. Decreased Ind with total body dressing 2. Decreased Ind with showering 3. Decreased endurance needed for safe and Ind return home.) Occupational Therapy Goals: 1. Pt will be Ind with total body dressing 2. Pt will be Ind with showering 3. Pt will demonstrated improved endurance to allow safe and Ind ADLs/IADLs. Prognosis: Good Occupational Therapy Plan: OT 2-4 days per week to address self cares, functional mobility and overall endurance.
[2016-11-08] MEDS: AMLODIPINE BESYLATE 5MG TAB PO SCH (09:59)
[2016-11-08] MEDS: CARVEDILOL 3.125 MG TABLET PO SCH ×2 (10:00→21:58)
[2016-11-08] MEDS: ASPIRIN 81 MG TABEC PO SCH (10:00)
[2016-11-08] MEDS: MULTIVITAMINS/MINERALS TABLET PO SCH (10:00)
[2016-11-08] MEDS: NYSTATIN 15 GM POWDER TP SCH ×2 (10:01→22:41)
[2016-11-08] MEDS: LEVEMIR FLEXTOUCH 100 UNIT/ML INSULIN PEN SQ SCH ×2 (10:11→22:10)
[2016-11-08] MEDS: DARBEPOETIN 100 MCG/0.5 ML SQ SCH (10:12)
--- NOTE | 2016-11-08 14:47 | Physical Therapy Tx Note ---
Physical Therapy Tx Note - Treatment Note Tolerated: Good Total Time Spent With Patient: 30 Physical Therapy Tx Note: Detail (The patient was in bed when PT arrived. Discussed with patient wheelchair specifications he would prefer. Measurements were taken. The patient transferred independently to wheelchair. The patient ambulated with wheeled walker x 6 steps, aproximately 3 feet. The patient then became lightheaded . Patient's Blood Pressure was low.) Physical Therapy Problem List: Detail (1) Non ambulatory 2) Supervision/contact gaurding with transfers for safety. 3) Decreased LE strength) Physical Therapy Goals: 1) Assess R residual limb ROM and Strength. 2) The patient will be independent with all transfers. 3) The patient will be independent with AKA HEP and follow proper AKA prosthesis preparation precautions. 4) The patient will ambulate with wheeled walker household distances with supervision for safety. 5) Increase LE strength in weakened muscles 1/3 muscle grade. Physical Therapy Plan: PT M-F 1 to 2 times a day for gait and transfer training , LE strengthening exercises.
[2016-11-08] MEDS: ATORVASTATIN 20 MG TABLET PO SCH (22:10)
[2016-11-09] MEDS: HYDRALAZINE HCL 25 MG TABLET PO SCH ×2 (06:21→15:45)
[2016-11-09] MEDS: PATIENT OWN MED: METHYLPHENIDATE 5 MG PO SCH ×2 (06:21→13:02)
[2016-11-09] MEDS: PANTOPRAZOLE SODIUM 40 MG TABLET PO SCH (06:21)
[2016-11-09] MEDS: NOVOLOG FLEXPEN (INSULIN ASPART) 100 UNITS/ML SQ SCH ×3 (07:40→17:20)
[2016-11-09] MEDS: METOCLOPRAMIDE 10 MG TABLET PO SCH ×3 (07:41→17:21)
[2016-11-09] MEDS: ASPIRIN 81 MG TABEC PO SCH (10:38)
[2016-11-09] MEDS: MULTIVITAMINS/MINERALS TABLET PO SCH (10:38)
[2016-11-09] MEDS: LEVEMIR FLEXTOUCH 100 UNIT/ML INSULIN PEN SQ SCH ×2 (10:39→21:55)
[2016-11-09] MEDS: NYSTATIN 15 GM POWDER TP SCH ×2 (10:41→21:57)
[2016-11-09] MEDS: CARVEDILOL 3.125 MG TABLET PO SCH (15:45)
[2016-11-09] MEDS: AMLODIPINE BESYLATE 5MG TAB PO SCH (15:45)
[2016-11-09] MEDS: ATORVASTATIN 20 MG TABLET PO SCH (21:52)
[2016-11-10] MEDS: PANTOPRAZOLE SODIUM 40 MG TABLET PO SCH (06:26)
[2016-11-10] MEDS: PATIENT OWN MED: METHYLPHENIDATE 5 MG PO SCH ×2 (06:26→12:13)
[2016-11-10] MEDS: NOVOLOG FLEXPEN (INSULIN ASPART) 100 UNITS/ML SQ SCH ×3 (08:52→17:19)
[2016-11-10] MEDS: METOCLOPRAMIDE 10 MG TABLET PO SCH ×3 (08:56→17:24)
[2016-11-10] MEDS: ASPIRIN 81 MG TABEC PO SCH (10:25)
[2016-11-10] MEDS: MULTIVITAMINS/MINERALS TABLET PO SCH (10:25)
[2016-11-10] MEDS: CARVEDILOL 3.125 MG TABLET PO SCH ×2 (10:25→23:21)
[2016-11-10] MEDS: NYSTATIN 15 GM POWDER TP SCH ×2 (10:26→22:53)
[2016-11-10] MEDS: AMLODIPINE BESYLATE 5MG TAB PO SCH (10:26)
[2016-11-10] MEDS: LEVEMIR FLEXTOUCH 100 UNIT/ML INSULIN PEN SQ SCH ×2 (10:28→22:55)
[2016-11-10] MEDS: HYDRALAZINE HCL 25 MG TABLET PO SCH ×2 (15:56→23:21)
[2016-11-10] MEDS: ATORVASTATIN 20 MG TABLET PO SCH (22:55)
[2016-11-11 06:24] LABS: HEMATOCRIT 25.5 % (42.0-52.0); MEAN CELL VOLUME 95.5 fl (81-97); MEAN CORPUSCULAR HGB CONC 31.4 g/dl (32-36); MEAN PLATELET VOLUME 8.9 fl (7.4-10.4); PLATELET COUNT 308 K/uL (130-400); RED BLOOD COUNT 2.67 M/uL (4.40-5.70); RED CELL DISTRIBUTION WIDTH 15.2 % (11.5-14.5); WHITE BLOOD COUNT W/O DIFF 12.6 K/uL (4.2-12.2)
[2016-11-11] MEDS: PATIENT OWN MED: METHYLPHENIDATE 5 MG PO SCH ×2 (06:24→12:11)
[2016-11-11] MEDS: PANTOPRAZOLE SODIUM 40 MG TABLET PO SCH (06:24)
[2016-11-11] MEDS: HYDRALAZINE HCL 25 MG TABLET PO SCH ×3 (06:24→21:35)
[2016-11-11 06:25] LABS: MEAN CORPUSCULAR HEMOGLOBIN 29.9 pg (27-33)
[2016-11-11 06:41] LABS: ALB/GLOB RATIO 0.8 (1.1-1.8); ALBUMIN 2.7 gm/dL (3.5-5.0); BILIRUBIN,TOTAL 0.35 mg/dL (0.2-1.3); CREATININE 1.7 mg/dL (0.66-1.25)
[2016-11-11 06:47] LABS: PLATELET ESTIMATE NORMAL (NORMAL)
[2016-11-11 06:48] LABS: ANISOCYTOSIS 1+; POLYCHROMASIA 1+
[2016-11-11] MEDS: OXYCODONE/APAP 10MG-325MG TABLET PO PRN (08:22)
[2016-11-11] MEDS: METOCLOPRAMIDE 10 MG TABLET PO SCH ×3 (08:23→17:36)
[2016-11-11] MEDS: NOVOLOG FLEXPEN (INSULIN ASPART) 100 UNITS/ML SQ SCH ×3 (08:24→17:34)
[2016-11-11] MEDS: NYSTATIN 15 GM POWDER TP SCH ×2 (10:39→21:36)
[2016-11-11] MEDS: CARVEDILOL 3.125 MG TABLET PO SCH ×2 (10:39→21:36)
[2016-11-11] MEDS: AMLODIPINE BESYLATE 5MG TAB PO SCH (10:39)
[2016-11-11] MEDS: MULTIVITAMINS/MINERALS TABLET PO SCH (10:49)
[2016-11-11] MEDS: ASPIRIN 81 MG TABEC PO SCH (10:49)
[2016-11-11] MEDS: REMOVE PATCH 1 EACH MISC TD SCH (10:50)
[2016-11-11] MEDS: [UNRECOGNIZED DRUG - OTHER] TOP SCH (10:53)
[2016-11-11] MEDS: CLONIDINE TOP SCH (10:53)
[2016-11-11] MEDS: CLONIDINE TTS-0.1MG PATCH TD SCH (10:54)
[2016-11-11] MEDS: LEVEMIR FLEXTOUCH 100 UNIT/ML INSULIN PEN SQ SCH ×2 (10:59→21:10)
[2016-11-11] MEDS: ACETAMINOPHEN 325 MG TAB PO PRN (21:09)
[2016-11-11] MEDS: ATORVASTATIN 20 MG TABLET PO SCH (21:09)
[2016-11-12] MEDS: PATIENT OWN MED: METHYLPHENIDATE 5 MG PO SCH ×2 (06:47→13:07)
[2016-11-12] MEDS: PANTOPRAZOLE SODIUM 40 MG TABLET PO SCH (06:47)
[2016-11-12] MEDS: HYDRALAZINE HCL 25 MG TABLET PO SCH ×3 (06:47→23:00)
[2016-11-12] MEDS: NOVOLOG FLEXPEN (INSULIN ASPART) 100 UNITS/ML SQ SCH ×3 (08:38→17:25)
[2016-11-12] MEDS: METOCLOPRAMIDE 10 MG TABLET PO SCH ×3 (08:39→17:23)
[2016-11-12] MEDS: CARVEDILOL 3.125 MG TABLET PO SCH ×2 (11:02→23:00)
[2016-11-12] MEDS: AMLODIPINE BESYLATE 5MG TAB PO SCH (11:02)
[2016-11-12] MEDS: MULTIVITAMINS/MINERALS TABLET PO SCH (11:02)
[2016-11-12] MEDS: ASPIRIN 81 MG TABEC PO SCH (11:02)
[2016-11-12] MEDS: NYSTATIN 15 GM POWDER TP SCH ×2 (11:02→23:00)
--- NOTE | 2016-11-12 11:08 | Physical Therapy Tx Note ---
Physical Therapy Tx Note - Treatment Note Tolerated: Good Total Time Spent With Patient: 30 Physical Therapy Tx Note: Detail (The patient was in bed when PT arrived. The patient transferred to chair independently. The patient ambulated with wheeled walker 5 feet with supervision for safety. The patient completed LE exercises: with blue Theraband hip flexors, hip abductors, LAQ, hamstrings x 20 reps, hip adductors squeezes x 10. The patient declined walking in the bathroom, stating he feels he will have no trouble at home. The patient did request a car transfer which will be set up for tomorrow.) Physical Therapy Problem List: Detail (1) Non ambulatory 2) Supervision/contact gaurding with transfers for safety. 3) Decreased LE strength) Physical Therapy Goals: 1) Assess R residual limb ROM and Strength. 2) The patient will be independent with all transfers. 3) The patient will be independent with AKA HEP and follow proper AKA prosthesis preparation precautions. 4) The patient will ambulate with wheeled walker household distances with supervision for safety. 5) Increase LE strength in weakened muscles 1/3 muscle grade. Physical Therapy Plan: PT M-F 1 to 2 times a day for gait and transfer training , LE strengthening exercises.
[2016-11-12] MEDS: LEVEMIR FLEXTOUCH 100 UNIT/ML INSULIN PEN SQ SCH ×3 (11:13→23:00)
--- NOTE | 2016-11-12 15:08 | Physical Therapy Tx Note ---
Physical Therapy Tx Note - Treatment Note Tolerated: Good Total Time Spent With Patient: 20 Physical Therapy Tx Note: Detail (Pt. was asleep upon arrival but awoke easily. Pt states really tired today after PT this morning. Pt was willing to do bed ex' s of SLR, hip adduction with manual resistance, hip abduction with manual resistance, LE ext into bed. Isometric glutes, isometric abdominals, isometric quads sets. All ex's x 10 bilateral. Pt responded well to treatment. No new complaints. Pt did state still has some shooting pain in right lower extremity intermittently.) Physical Therapy Problem List: Detail (1) Non ambulatory 2) Supervision/contact gaurding with transfers for safety. 3) Decreased LE strength) Physical Therapy Goals: 1) Assess R residual limb ROM and Strength. 2) The patient will be independent with all transfers. 3) The patient will be independent with AKA HEP and follow proper AKA prosthesis preparation precautions. 4) The patient will ambulate with wheeled walker household distances with supervision for safety. 5) Increase LE strength in weakened muscles 1/3 muscle grade. Prognosis: Good Physical Therapy Plan: PT M-F 1 to 2 times a day for gait and transfer training , LE strengthening exercises.
[2016-11-12] MEDS: ATORVASTATIN 20 MG TABLET PO SCH (23:00)
[2016-11-13] MEDS: HYDRALAZINE HCL 25 MG TABLET PO SCH ×3 (06:49→23:16)
[2016-11-13] MEDS: OXYCODONE/APAP 10MG-325MG TABLET PO PRN (06:49)
[2016-11-13] MEDS: PANTOPRAZOLE SODIUM 40 MG TABLET PO SCH (06:49)
[2016-11-13] MEDS: PATIENT OWN MED: METHYLPHENIDATE 5 MG PO SCH ×2 (07:07→12:54)
[2016-11-13] MEDS: METOCLOPRAMIDE 10 MG TABLET PO SCH ×3 (08:20→19:08)
[2016-11-13] MEDS: METFORMIN 500 MG TABLET PO SCH (08:21)
[2016-11-13] MEDS: NOVOLOG FLEXPEN (INSULIN ASPART) 100 UNITS/ML SQ SCH ×3 (08:21→17:42)
[2016-11-13] MEDS: ASPIRIN 81 MG TABEC PO SCH (12:40)
[2016-11-13] MEDS: AMLODIPINE BESYLATE 5MG TAB PO SCH (12:40)
[2016-11-13] MEDS: CARVEDILOL 3.125 MG TABLET PO SCH ×2 (12:40→23:06)
[2016-11-13] MEDS: MULTIVITAMINS/MINERALS TABLET PO SCH (12:40)
[2016-11-13] MEDS: LEVEMIR FLEXTOUCH 100 UNIT/ML INSULIN PEN SQ SCH ×2 (12:43→23:07)
--- NOTE | 2016-11-13 16:22 | Physical Therapy Tx Note ---
Physical Therapy Tx Note - Treatment Note Tolerated: Good Total Time Spent With Patient: 30 Physical Therapy Tx Note: Detail (The patient completed a car transfer into his own personal car with supervision for safety only. The patient completed LE strengthening exercises in supine including L SLR , blue band hip abduction, hip adductor squeezes all x 20 reps, R sidelying hip extension and R sidelying hip abduction x 20 reps. Patient's hip extension was measured in sidelying as - 6 degrees. A escrow representative for [facility] [employer] arrived during PT session and answered patient's and PT's questions concerning future prosthesis.) Physical Therapy Problem List: Detail (1) Non ambulatory 2) Supervision/contact gaurding with transfers for safety. 3) Decreased LE strength) Physical Therapy Goals: 1) Assess R residual limb ROM and Strength. 2) The patient will be independent with all transfers. 3) The patient will be independent with AKA HEP and follow proper AKA prosthesis preparation precautions. 4) The patient will ambulate with wheeled walker household distances with supervision for safety. 5) Increase LE strength in weakened muscles 1/3 muscle grade. Physical Therapy Plan: PT M-F 1 to 2 times a day for gait and transfer training , LE strengthening exercises.
[2016-11-13] MEDS: NYSTATIN 15 GM POWDER TP SCH ×2 (17:36→23:17)
[2016-11-13] MEDS: ATORVASTATIN 20 MG TABLET PO SCH (23:06)
[2016-11-14] MEDS: HYDRALAZINE HCL 25 MG TABLET PO SCH ×3 (07:04→22:46)
[2016-11-14] MEDS: PATIENT OWN MED: METHYLPHENIDATE 5 MG PO SCH ×2 (07:04→14:30)
[2016-11-14] MEDS: PANTOPRAZOLE SODIUM 40 MG TABLET PO SCH (07:04)
[2016-11-14 07:11] LABS: HEMATOCRIT 27.8 % (42.0-52.0); HEMOGLOBIN 8.8 gm/dl (14.0-18.0); MEAN CELL VOLUME 94.6 fl (81-97); MEAN CORPUSCULAR HEMOGLOBIN 29.9 pg (27-33); MEAN CORPUSCULAR HGB CONC 31.7 g/dl (32-36); MEAN PLATELET VOLUME 8.9 fl (7.4-10.4); PLATELET COUNT 345 K/uL (130-400); RED BLOOD COUNT 2.94 M/uL (4.40-5.70); RED CELL DISTRIBUTION WIDTH 15.4 % (11.5-14.5); WHITE BLOOD COUNT W/O DIFF 13.6 K/uL (4.2-12.2)
[2016-11-14 07:25] LABS: ALB/GLOB RATIO 0.8 (1.1-1.8); ALBUMIN 2.9 gm/dL (3.5-5.0); ANION GAP 7.5 (7-16); BILIRUBIN,TOTAL 0.35 mg/dL (0.2-1.3); CARBON DIOXIDE 27.5 mmol/L (22-30); CREATININE 1.5 mg/dL (0.66-1.25); TOTAL PROTEIN 6.4 gm/dL (6.3-8.2)
[2016-11-14 07:29] LABS: HYPOCHROMIA 1+; PLATELET ESTIMATE NORMAL (NORMAL)
[2016-11-14] MEDS: METOCLOPRAMIDE 10 MG TABLET PO SCH ×3 (08:39→19:50)
[2016-11-14] MEDS: METFORMIN 500 MG TABLET PO SCH ×2 (08:40→19:50)
[2016-11-14] MEDS: LEVEMIR FLEXTOUCH 100 UNIT/ML INSULIN PEN SQ SCH ×3 (08:40→22:48)
[2016-11-14] MEDS: NOVOLOG FLEXPEN (INSULIN ASPART) 100 UNITS/ML SQ SCH ×3 (08:46→19:49)
[2016-11-14] MEDS: ASPIRIN 81 MG TABEC PO SCH (11:17)
[2016-11-14] MEDS: MULTIVITAMINS/MINERALS TABLET PO SCH (11:17)
[2016-11-14] MEDS: CARVEDILOL 3.125 MG TABLET PO SCH ×2 (11:17→22:46)
[2016-11-14] MEDS: AMLODIPINE BESYLATE 5MG TAB PO SCH (11:18)
[2016-11-14] MEDS: NYSTATIN 15 GM POWDER TP SCH ×2 (11:18→23:00)
--- NOTE | 2016-11-14 13:12 | Physician Progress Note ---
Subjective - Date Date of Progress Note: 11/14/16 - Admitting Diagnosis Diagnosis: Deconditioning d/t amputation above the right knee - Subjective Events since last encounter: sitting up in wheel chair comfortably. denies any concerns at this time. states he felt dressing change was less painful yesterday. addis, patient's nurse, thought wound had vertically extended further. patient having dressing change q2 days. denies fever, chills, n/v, abd pain, cough, sob, cp or dizziness. patient has follow up visit with vascular surgery. Nursing Care Plan Problem List Activity Intolerance (Swing Bed) Start: 10/31/16 16: 56 Freq: Status: Complete Created 10/31/16 16:56 [facility] (Rec: 10/31/16 16:56 [id number] Edit Status 11/13/16 15:02 MMT (Rec: 11/13/16 15:02 MMT [id number]) Active=>Complete High Risk: Altered Glucose Metabolism Start: 10/31/16 16: 36 Freq: Status: Active Created 10/31/16 16:36 [facility] (Rec: 10/31/16 16:36 [id number] High Risk: Impaired Skin Integrity Start: 10/31/16 16: 36 Freq: Status: Active Created 10/31/16 16:36 [facility] (Rec: 10/31/16 16:36 [id number] Knowledge Deficit (Swing Bed) Start: 10/31/16 16: 56 Freq: Status: Complete Created 10/31/16 16:56 [facility] (Rec: 10/31/16 16:56 KM [id number]) Edit Status 11/13/16 15:02 MMT (Rec: 11/13/16 15:02 MMT [id number]) Active=>Complete Knowledge Deficit: Diabetes Mellitus Start: 10/31/16 16: 36 Freq: Status: Active Created 10/31/16 16:36 [facility] (Rec: 10/31/16 16:36 [id number] Pain (Swing Bed) Start: 10/31/16 16: 56 Freq: Status: Complete Created 10/31/16 16:56 [facility] (Rec: 10/31/16 16:56 KM [id number]) Edit Status 11/13/16 15:02 MMT (Rec: 11/13/16 15:02 MMT [id number]) Active=>Complete General - Cognitive Patterns Speech: Normal Thought Process: Intact Thought Content: Normal - Communication Select best description of speech pattern: Clear Speech Ability to express ideas and wants: Understood Understanding verbal content: Understands - Mood and Behavior Patterns Appearance: Well Groomed Mood: Normal Attitude: Cooperative Motor Activity: Calm Affect: Appropriate Hallucinations: Denies - Physical Functioning Activity Level: Up with assist x1 Turning: With partial assist ROM Ability: Within Normal Limits Assistive Devices: Wheel Chair Ambulation Ability: Needs Assist Bed Mobility: Needs Assist Transfer Ability: Needs Assist Bathing Ability: Independent Personal Hygiene: Independent Dressing Ability: Needs Assist Eating (Feeding) Ability: Independent Toileting Ability: Needs Assist Administer Own Medication: Independent - Continence Bowel Pattern: Normal for Patient Bladder Pattern: Normal Meds/Allergies - Allergies Allergies Allergy/AdvReac Type Severity Reaction Status Date / Time No Known Drug Allergies Allergy Verified 01/31/15 14:48 - Active Medications Current Medications Acetaminophen (Tylenol 325mg) 650 mg PO Q6H PRN PRN Reason: MILD PAIN OR FEVER Last Admin: 11/11/16 21:09 Dose: 650 mg Amlodipine Besylate (Norvasc) 5 mg PO DAILY [facility] Last Admin: 11/14/16 11:18 Dose: 5 mg Aspirin (Ecotrin (Ec)) 81 mg PO DAILY [facility] Last Admin: 11/14/16 11:17 Dose: 81 mg Atorvastatin Calcium (Lipitor) 40 mg PO QHS [facility] Last Admin: 11/13/16 23:06 Dose: 40 mg Carvedilol (Coreg) 3.125 mg PO BID [facility] Last Admin: 11/14/16 11:17 Dose: 3.125 mg Clonidine HCl (Catapres Tts-2) 1 each TOP Q7D [facility] Last Admin: 11/11/16 10:53 Dose: 1 each Clonidine HCl (Catapres Tts-1) 1 each TD Q7D [facility] Last Admin: 11/11/16 10:54 Dose: 1 each Darbepoetin Tone (Aranesp) 100 mcg SQ Fr [facility] Last Admin: 11/08/16 10:12 Dose: 100 mcg Hydralazine HCl (Apresoline) 25 mg PO Q8HR [facility] Last Admin: 11/14/16 07:04 Dose: 25 mg Insulin Aspart (Novolog Flexpen) 0 unit SQ TIDINS [facility] PRN Reason: Protocol Last Admin: 11/14/16 08:46 Dose: Not Given Insulin Detemir (Levemir Flextouch) 15 unit SQ BID [facility] Last Admin: 11/14/16 11:18 Dose: Not Given Metformin HCl (Glucophage Ir) 500 mg PO DAILYWM [facility] Last Admin: 11/14/16 08:40 Dose: 500 mg Metoclopramide HCl (Reglan) 10 mg PO WMEALS [facility] Last Admin: 11/14/16 08:39 Dose: 10 mg Miscellaneous (Remove Patch) 1 each TD Q7D [facility] Last Admin: 11/11/16 10:50 Dose: 1 each Multivitamins/Minerals (Centrum) 1 tab PO DAILY [facility] Last Admin: 11/14/16 11:17 Dose: 1 tab Nystatin (Nystop) 15 gm TP BID [facility] Last Admin: 11/14/16 11:18 Dose: Not Given Oxycodone/Acetaminophen (Percocet 10-325 Mg Tablet) 1 each PO Q6H PRN PRN Reason: MODERATE TO SEVERE PAIN Last Admin: 11/13/16 06:49 Dose: 1 each Pantoprazole Sodium (Protonix) 40 mg PO DAILYAC [facility] Last Admin: 11/14/16 07:04 Dose: 40 mg Patient Own Med: (Methylphenidate 5 Mg) 1 each PO 0700,1200 [facility] Last Admin: 11/14/16 07:04 Dose: 1 each Senna/Docusate Sodium (Senna Plus) 2 each PO BID PRN PRN Reason: CONSTIPATION Objective - Vital Signs Vital Signs: Vital Signs - Last 24 Hrs Temp Pulse Resp BP BP Pulse Ox 11/14/16 11:11 98.3 F 103/63 11/14/16 08:00 98.3 F 75 18 103/63 96 11/14/16 07:30 63 138/59 11/13/16 22:00 99.5 F 70 18 116/54 93 L - General General Appearance: Alert, Oriented x3, Cooperative, No acute distress - Head Head exam: Normal inspection - Eye Eye exam: Normal appearance, PERRL - ENT ENT exam: Normal exam, Mucous membranes moist, Normal external ear exam, Normal orophraynx, TM's normal bilaterally Ear exam: Normal external inspection. negative: External canal tenderness Nasal Exam: Normal inspection. negative: Discharge, Sinus tenderness Mouth exam: Normal external inspection, Tongue normal Teeth exam: Normal inspection. negative: Dental caries Throat exam: Normal inspection. negative: Tonsillar erythema, Tonsillar exudate - Neck Neck exam: Normal inspection, Full ROM. negative: Tenderness - Respiratory Respiratory exam: Normal lung sounds bilaterally. negative: Respiratory distress - Cardiovascular Cardiovascular Exam: Regular rate, Normal rhythm, Normal heart sounds - GI/Abdominal GI/Abdominal exam: Soft, Normal bowel sounds. negative: Tenderness - Rectal Rectal exam: Deferred - exam: Deferred - Back Back exam: Reports: Other (right AKA. ) - Neurological Neurological exam: Abnormal gait, Alert, Oriented X3, Reflexes normal - Psychiatric Psychiatric exam: Normal affect, Normal mood - Skin Skin exam: Dry, Warm, Other (right AKA wound appears to be healing well) H&P Results - Labs Result Diagrams: 11/14/16 06:35 11/14/16 06:35 Labs Last 24 Hours: Laboratory Results - last 24 hr 11/13/16 11/13/16 11/14/16 17:00 23:00 06:35 WBC 13.6 H RBC 2.94 L Hgb 8.8 L Hct 27.8 L MCV 94.6 MCH 29.9 MCHC 31.7 L RDW 15.4 H Plt Count 345 MPV 8.9 Neutrophils % 73.0 Eosinophils % Not Reportable Basophils % Not Reportable Lymphocytes 16.0 Monocytes 10.0 H Platelet Estimate Normal Hypochromasia 1+ Eosinophil Count 1.0 Sodium Potassium Chloride Carbon Dioxide Anion Gap BUN Creatinine Estimated GFR POC Glucose 327 H 171 H Random Glucose Calcium Total Bilirubin AST ALT Alkaline Phosphatase Total Protein Albumin Globulin Albumin/Globulin Ratio 11/14/16 11/14/16 11/14/16 06:35 07:38 11:30 WBC RBC Hgb Hct MCV MCH MCHC RDW Plt Count MPV Neutrophils % Eosinophils % Basophils % Lymphocytes Monocytes Platelet Estimate Hypochromasia Eosinophil Count Sodium 137 Potassium 3.9 Chloride 102 Carbon Dioxide 27.5 Anion Gap 7.5 BUN 20 Creatinine 1.5 H Estimated GFR 50 POC Glucose 110 245 H Random Glucose 111 H Calcium 8.5 Total Bilirubin 0.35 AST 22 ALT 49 Alkaline Phosphatase 88 Total Protein 6.4 Albumin 2.9 L Globulin 3.5 Albumin/Globulin Ratio 0.8 L Discharge Potential - Discharge Needs Community Services Used Prior to Admission: Occupational Therapy, Physical Therapy, Transportation Patient Discharge Plan Description: Return Home Community Services Needed at Discharge: Occupational Therapy, Physical Therapy, Transportation, Pathways to Better Health Plan - Swing Bed Certification Initial Certification Due: 10/31/16 14 Day Re-Cert Due: 11/14/16 44 Day Re-Cert Due: 12/14/16 74 Day Re-Cert Due: 01/13/17 - Detailed Diagnosis and Plan (1) S/P AKA (above knee amputation) Current Visit: Yes Status: Acute Base Code: Z89.619 - ACQUIRED ABSENCE OF UNSPECIFIED LEG ABOVE KNEE Comment: 11/14/16- wound appears to be healing well. continue to monitor. Has appointment with Dr. Caedt Vascular surgery today at 2pm. Wound vac in place right groin at second surgical spot following the ligation. finished course of IV antibiotics while at [facility] but will continue with nystatin powder daily. 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 Nephrology recommends continued monitoring of CMP and avoiding nephrotoxic agents - GFR >50 (5) Anemia Current Visit: Yes Status: Acute Qualifiers: Other causes of anemia: acute posthemorrhagic Base Code: D64.9 - ANEMIA, UNSPECIFIED Comment: 11/14/16- Spardeven recommends repeat CBC. had transfusion of 1 unit on 10/31/16. anemia 2/2 to acute blood loss as well as chronic anemia for chronic renal insufficiency - h/h stable 11/14, will continue to monitor. (6) HTN (hypertension) Current Visit: Yes Status: Acute Base Code: I10 - ESSENTIAL (PRIMARY) HYPERTENSION Comment: 11/14/16- anti hypertensive agents adjusted as patient was becoming too hypotensive. 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 Patient had previously been on lantus 30 units bid prior to hospitalization. -continue novolog aggressive sliding scale - levemir 15 U BID. will continue to adjust long acting insulin based on total daily insulin requirements. - renal function has improved. Will start Metformin 500 mg BIDWM. -ada diet
--- NOTE | 2016-11-14 15:10 | Physical Therapy Tx Note ---
Physical Therapy Tx Note - Treatment Note Tolerated: Good Total Time Spent With Patient: 35 Physical Therapy Tx Note: Detail (Pt in bed upon arrival but awake/alert, cooperative for therapy. Performed 15 reps each of L LE SLR, quadriceps isometrics, ankle pumps, short arc quads; B hip adduction w/pillow, gluteal isometrics, sidelying hip abduction, rolling side to side. Removed adhesive bandage from L heel that was rolled up and not covering wound, advised nrsg. Pt reports anticipated discharge home Friday or Friday. Discussed his method for ascending/descending stairs (scooting on buttocks, being assisted to wheelchair at top/bottom). He states he will be getting new wheelchair before going home. Discussed home physical therapy.) Physical Therapy Problem List: Detail (1) Non ambulatory 2) Supervision/contact gaurding with transfers for safety. 3) Decreased LE strength) Physical Therapy Goals: 1) Assess R residual limb ROM and Strength. 2) The patient will be independent with all transfers. 3) The patient will be independent with AKA HEP and follow proper AKA prosthesis preparation precautions. 4) The patient will ambulate with wheeled walker household distances with supervision for safety. 5) Increase LE strength in weakened muscles 1/3 muscle grade. Prognosis: Good Physical Therapy Plan: PT M-F 1 to 2 times a day for gait and transfer training , LE strengthening exercises.
[2016-11-14] MEDS: ATORVASTATIN 20 MG TABLET PO SCH (22:46)
[2016-11-15] MEDS: OXYCODONE/APAP 10MG-325MG TABLET PO PRN (06:57)
[2016-11-15] MEDS: PATIENT OWN MED: METHYLPHENIDATE 5 MG PO SCH ×2 (06:58→11:27)
[2016-11-15] MEDS: PANTOPRAZOLE SODIUM 40 MG TABLET PO SCH (06:58)
[2016-11-15] MEDS: HYDRALAZINE HCL 25 MG TABLET PO SCH ×3 (06:58→21:59)
--- NOTE | 2016-11-15 07:41 | Occupational Therapy Tx Note ---
Occupational Therapy Tx Note - Treatment Note Occupational Therapy Treatment Note: Detail (Pt was schedule for shower assessment, he reports he took a shower yesterday and he was Ind. He does not want to shower again today and has no other OT concerns that he would like to address until he is home.) Occupational Therapy Problem List: Detail (1. Decreased Ind with total body dressing 2. Decreased Ind with showering 3. Decreased endurance needed for safe and Ind return home.) Occupational Therapy Goals: 1. Pt will be Ind with total body dressing 2. Pt will be Ind with showering 3. Pt will demonstrated improved endurance to allow safe and Ind ADLs/IADLs. Occupational Therapy Plan: OT 2-4 days per week to address self cares, functional mobility and overall endurance.
[2016-11-15] MEDS: NOVOLOG FLEXPEN (INSULIN ASPART) 100 UNITS/ML SQ SCH ×3 (07:49→17:45)
[2016-11-15] MEDS: METOCLOPRAMIDE 10 MG TABLET PO SCH ×3 (07:51→17:46)
[2016-11-15] MEDS: METFORMIN 500 MG TABLET PO SCH ×2 (07:51→17:47)
--- NOTE | 2016-11-15 10:17 | Discharge Summary ---
Providers Discharge Summary Date: 11/18/16 Date of admission: 10/31/16 16:31 Expected Date of Discharge: 11/18/16 Attending physician: CRUZ BROWN Primary care physician: NACHO MONTEIRO D.O. Physical Exam - Vital Signs Vital Signs: Vital Signs - Last 24 Hrs Temp Pulse Resp BP BP BP Pulse Ox 11/15/16 07:28 69 18 147/70 96 11/14/16 20:00 98.9 F 87 18 126/67 95 11/14/16 11:11 98.3 F 103/63 - General General Appearance: Alert, Oriented x3, Cooperative, No acute distress - Head Head exam: Normal inspection - Eye Eye exam: Normal appearance, PERRL - ENT ENT exam: Normal exam, Mucous membranes moist, Normal external ear exam, Normal orophraynx, TM's normal bilaterally Ear exam: Normal external inspection. negative: External canal tenderness Nasal Exam: Normal inspection. negative: Discharge, Sinus tenderness Mouth exam: Normal external inspection, Tongue normal Teeth exam: Normal inspection. negative: Dental caries Throat exam: Normal inspection. negative: Tonsillar erythema, Tonsillar exudate - Neck Neck exam: Normal inspection, Full ROM. negative: Tenderness - Respiratory Respiratory exam: Normal lung sounds bilaterally. negative: Respiratory distress - Cardiovascular Cardiovascular Exam: Regular rate, Normal rhythm, Normal heart sounds - GI/Abdominal GI/Abdominal exam: Soft, Normal bowel sounds. negative: Tenderness - Rectal Rectal exam: Deferred - exam: Deferred - Back Back exam: Reports: Other (right AKA. ) - Neurological Neurological exam: Abnormal gait, Alert, Oriented X3, Reflexes normal - Psychiatric Psychiatric exam: Normal affect, Normal mood - Skin Skin exam: Dry, Warm, Other (right AKA wound appears to be healing well) Hospitalization - Hospitalization Admission Diagnosis: Deconditioning d/t amputation above the right knee - Problem List (1) S/P AKA (above knee amputation) Current Visit: Yes Status: Acute Base Code: Z89.619 - ACQUIRED ABSENCE OF UNSPECIFIED LEG ABOVE KNEE Comment: 11/18/16- wound appears to be healing well. Patient followed with Dr. Cadet [facility] surgery last week. Wound vac in place right groin at second surgical spot following the ligation. - wound vac w/ dressing changes every 2 days at home - wound vac has been delivered to the home - Use new wheel chair at home - continue with nystatin powder daily. - continue pain control- Percocet Q6H PRN - continue to monitor wound for secondary infection- worsening redness, pain, new drainage. - continue to follow with [facility] surgeon as scheduled (2) Physical deconditioning Current Visit: Yes Status: Acute Base Code: R53.81 - OTHER MALAISE Comment : 11/18/16- Pt's strength has significantly improved. continue PT/OT at home (3) RICARDO (acute kidney injury) Current Visit: Yes Status: Acute Base Code: N17.9 - ACUTE KIDNEY FAILURE, UNSPECIFIED Comment: 11/18/16- Renal function has normalized. GFR >60. (4) Anemia Current Visit: Yes Status: Acute Discharge Diagnosis: Other causes of anemia: acute posthemorrhagic Base Code: D64.9 - ANEMIA, UNSPECIFIED Comment: 11/18/16- S/p blood transfusion 10/31/16. anemia 2/2 to acute blood loss as well as chronic anemia for chronic renal insufficiency - h/h stable - lab draw in 3 days - continue to monitor w/ PCP (5) HTN (hypertension) Current Visit: Yes Status: Acute Base Code: I10 - ESSENTIAL (PRIMARY) HYPERTENSION Comment: 11/18/16- anti hypertensive agents adjusted as patient was becoming too hypotensive during his stay. - continue Norvasc 5 mg PO QD, hydralazine 25 mg Q8H, Coreg 6.25 mg BID - follow up BP w/ PCP as outpatient (6) Type 2 diabetes mellitus treated with insulin Current Visit: Yes Status: Acute Base Code: E11.9 - TYPE 2 DIABETES MELLITUS WITHOUT COMPLICATIONS; Z79.4 - NURSING HOME (CURRENT) USE OF INSULIN Comment: 11/18/16- better controlled. Patient had previously been on lantus 30 units bid prior to hospitalization. - levemir 17 U BID. - Will increase Metformin to 1000 mg BIDWM. - ada diet - monitor BS four times daily. (7) Full code status Current Visit: Yes Status: Acute Base Code: Z78.9 - OTHER SPECIFIED HEALTH STATUS Comment: 11/18/16- pt remained full code - Hospitalization Course Disposition: Home Health Service Hospital Course: 66yo male admitted to for deconditioning after prolonged hospitalization for complications of a BKA. PMHx of CAD (stent x2), DM, PVD (s.p multiple lower extremity stents) and BKA done on 08/29/16. Patient had presented to [facility] on 10/01/16 for RLE pain for 3 days. CTA revealed an occlusion of all vasculature and patient underwent R thrombectomy, R iliac stenting and R BKA debridement on 10/03/16. He then developed a groin infection with wound vac placement on 10/07. he was admitted to [facility] on 10/08. Had severe bleeding on 10/09 from the groin that required urgent ligation of the r external iliac, superficial femoral and profunda femoris arteries and an excision of infected GYNECOLOGICAL ASSISTANT. Was in [facility] ICU and underwent Right AKA at that time (10/15) instead of transfer to [facility] for a axillo-femoral graft. He suffered RICARDO due to sepsis and ATN from [facility]. He was also followed by ID for groin infection. Had NG tube placed on 10/18 that was removed 10/26. He saw neuropsych and was started on ritalin for neurofatigue which was helpful. His appetite continued to improve. He did require 2 RBC transfusions on 10/19 and 10/31. He was stable for discharge but required further therapy. Patient currently resides with in 3rd story apartment. He has no way of getting up and down aside from sitting on the ground and lifting himself up and down the stairs. They are trying to obtain a 1st floor apartment. 11/01/16- Patient states he is feeling much better. States he really feels like the ritalin has turned things around for him. Says his mood and energy levels are better than ever. He denies any pain in his right stump. He denies any changes with the wound vac. He is looking forward to working with PT/OT to regain his strength. He states his diabetes medications were changed around some while in the hospital. He had previously been on metformin which was stopped due to RICARDO. He was on levemir 30units twice daily at home and they only sent him home on 18 units once daily. 11/15/16- patient sitting up in his chair this morning feeling well. states appt went really well with the vascular surgeon yesterday. patient is planning on going home Saturday 11/18 w/ wound vac. he's due for dressing change this morning. no additional concerns. 11/18/16- Abnormal Labs: Abnormal Lab Results 10/31/16 11/01/16 11/01/16 Range/Units 17:00 07:29 10:10 WBC 12.5 H (4.2-12.2) K/uL RBC 2.77 L (4.40-5.70) M/uL Hgb 8.5 L (14.0-18.0) gm/dl Hct 26.7 L (42.0-52.0) % MCHC 31.8 L (32-36) g/dl RDW 17.3 H (11.5-14.5) % Band Neutrophils % (0-5) % Monocytes 10.0 H (0-9) % BUN (9-20) mg/dL Creatinine (0.66-1.25) mg/dL POC Glucose 243 H 250 H (70-110) mg/dL Random Glucose (70-110) mg/dL Calcium (8.5-10.1) mg/dL Total Protein (6.3-8.2) gm/dL Albumin (3.5-5.0) gm/dL Albumin/Globulin Ratio (1.1-1.8) 11/01/16 11/01/16 11/01/16 Range/Units 10:10 11:30 17:00 WBC (4.2-12.2) K/uL RBC (4.40-5.70) M/uL Hgb (14.0-18.0) gm/dl Hct (42.0-52.0) % MCHC (32-36) g/dl RDW (11.5-14.5) % Band Neutrophils % (0-5) % Monocytes (0-9) % BUN 45 H (9-20) mg/dL Creatinine 2.7 H (0.66-1.25) mg/dL POC Glucose 327 H 281 H (70-110) mg/dL Random Glucose 338 H (70-110) mg/dL Calcium 7.8 L (8.5-10.1) mg/dL Total Protein (6.3-8.2) gm/dL Albumin (3.5-5.0) gm/dL Albumin/Globulin Ratio (1.1-1.8) 11/01/16 11/02/16 11/02/16 Range/Units 22:00 07:05 11:30 WBC (4.2-12.2) K/uL RBC (4.40-5.70) M/uL Hgb (14.0-18.0) gm/dl Hct (42.0-52.0) % MCHC (32-36) g/dl RDW (11.5-14.5) % Band Neutrophils % (0-5) % Monocytes (0-9) % BUN (9-20) mg/dL Creatinine (0.66-1.25) mg/dL POC Glucose 233 H 304 H 290 H (70-110) mg/dL Random Glucose (70-110) mg/dL Calcium (8.5-10.1) mg/dL Total Protein (6.3-8.2) gm/dL Albumin (3.5-5.0) gm/dL Albumin/Globulin Ratio (1.1-1.8) 11/02/16 11/02/16 11/03/16 Range/Units 17:00 22:00 06:53 WBC (4.2-12.2) K/uL RBC (4.40-5.70) M/uL Hgb (14.0-18.0) gm/dl Hct (42.0-52.0) % MCHC (32-36) g/dl RDW (11.5-14.5) % Band Neutrophils % (0-5) % Monocytes (0-9) % BUN (9-20) mg/dL Creatinine (0.66-1.25) mg/dL POC Glucose 264 H 325 H 158 H (70-110) mg/dL Random Glucose (70-110) mg/dL Calcium (8.5-10.1) mg/dL Total Protein (6.3-8.2) gm/dL Albumin (3.5-5.0) gm/dL Albumin/Globulin Ratio (1.1-1.8) 11/03/16 11/03/16 11/03/16 Range/Units 11:30 16:51 22:00 WBC (4.2-12.2) K/uL RBC (4.40-5.70) M/uL Hgb (14.0-18.0) gm/dl Hct (42.0-52.0) % MCHC (32-36) g/dl RDW (11.5-14.5) % Band Neutrophils % (0-5) % Monocytes (0-9) % BUN (9-20) mg/dL Creatinine (0.66-1.25) mg/dL POC Glucose 239 H 274 H 329 H (70-110) mg/dL Random Glucose (70-110) mg/dL Calcium (8.5-10.1) mg/dL Total Protein (6.3-8.2) gm/dL Albumin (3.5-5.0) gm/dL Albumin/Globulin Ratio (1.1-1.8) 11/04/16 11/04/16 11/04/16 Range/Units 06:52 11:30 17:00 WBC (4.2-12.2) K/uL RBC (4.40-5.70) M/uL Hgb (14.0-18.0) gm/dl Hct (42.0-52.0) % MCHC (32-36) g/dl RDW (11.5-14.5) % Band Neutrophils % (0-5) % Monocytes (0-9) % BUN (9-20) mg/dL Creatinine (0.66-1.25) mg/dL POC Glucose 249 H 332 H 298 H (70-110) mg/dL Random Glucose (70-110) mg/dL Calcium (8.5-10.1) mg/dL Total Protein (6.3-8.2) gm/dL Albumin (3.5-5.0) gm/dL Albumin/Globulin Ratio (1.1-1.8) 11/04/16 11/05/16 11/05/16 Range/Units 22:00 06:19 06:19 WBC 12.7 H (4.2-12.2) K/uL RBC 2.57 L (4.40-5.70) M/uL Hgb 7.8 L (14.0-18.0) gm/dl Hct 24.8 L (42.0-52.0) % MCHC 31.5 L (32-36) g/dl RDW 15.7 H (11.5-14.5) % Band Neutrophils % 9.0 H (0-5) % Monocytes (0-9) % BUN 30 H (9-20) mg/dL Creatinine 2.1 H (0.66-1.25) mg/dL POC Glucose 315 H (70-110) mg/dL Random Glucose (70-110) mg/dL Calcium 7.7 L (8.5-10.1) mg/dL Total Protein 5.7 L (6.3-8.2) gm/dL Albumin 2.6 L (3.5-5.0) gm/dL Albumin/Globulin Ratio 0.8 L (1.1-1.8) 11/05/16 11/05/16 11/05/16 Range/Units 11:30 17:00 22:00 WBC (4.2-12.2) K/uL RBC (4.40-5.70) M/uL Hgb (14.0-18.0) gm/dl Hct (42.0-52.0) % MCHC (32-36) g/dl RDW (11.5-14.5) % Band Neutrophils % (0-5) % Monocytes (0-9) % BUN (9-20) mg/dL Creatinine (0.66-1.25) mg/dL POC Glucose 194 H 311 H 330 H (70-110) mg/dL Random Glucose (70-110) mg/dL Calcium (8.5-10.1) mg/dL Total Protein (6.3-8.2) gm/dL Albumin (3.5-5.0) gm/dL Albumin/Globulin Ratio (1.1-1.8) 11/06/16 11/06/16 11/06/16 Range/Units 06:35 11:50 17:00 WBC (4.2-12.2) K/uL RBC (4.40-5.70) M/uL Hgb (14.0-18.0) gm/dl Hct (42.0-52.0) % MCHC (32-36) g/dl RDW (11.5-14.5) % Band Neutrophils % (0-5) % Monocytes (0-9) % BUN (9-20) mg/dL Creatinine (0.66-1.25) mg/dL POC Glucose 127 H 182 H 200 H (70-110) mg/dL Random Glucose (70-110) mg/dL Calcium (8.5-10.1) mg/dL Total Protein (6.3-8.2) gm/dL Albumin (3.5-5.0) gm/dL Albumin/Globulin Ratio (1.1-1.8) 11/06/16 11/07/16 11/07/16 Range/Units 21:45 08:00 08:07 WBC (4.2-12.2) K/uL RBC (4.40-5.70) M/uL Hgb (14.0-18.0) gm/dl Hct (42.0-52.0) % MCHC (32-36) g/dl RDW (11.5-14.5) % Band Neutrophils % (0-5) % Monocytes (0-9) % BUN (9-20) mg/dL Creatinine (0.66-1.25) mg/dL POC Glucose 261 H 208 H 67 L (70-110) mg/dL Random Glucose (70-110) mg/dL Calcium (8.5-10.1) mg/dL Total Protein (6.3-8.2) gm/dL Albumin (3.5-5.0) gm/dL Albumin/Globulin Ratio (1.1-1.8) 11/07/16 11/07/16 11/07/16 Range/Units 11:30 17:18 21:43 WBC (4.2-12.2) K/uL RBC (4.40-5.70) M/uL Hgb (14.0-18.0) gm/dl Hct (42.0-52.0) % MCHC (32-36) g/dl RDW (11.5-14.5) % Band Neutrophils % (0-5) % Monocytes (0-9) % BUN (9-20) mg/dL Creatinine (0.66-1.25) mg/dL POC Glucose 175 H 171 H 243 H (70-110) mg/dL Random Glucose (70-110) mg/dL Calcium (8.5-10.1) mg/dL Total Protein (6.3-8.2) gm/dL Albumin (3.5-5.0) gm/dL Albumin/Globulin Ratio (1.1-1.8) 11/08/16 11/08/16 11/08/16 Range/Units 06:10 06:10 11:50 WBC (4.2-12.2) K/uL RBC 2.61 L (4.40-5.70) M/uL Hgb 7.8 L (14.0-18.0) gm/dl Hct 25.1 L (42.0-52.0) % MCHC 31.1 L (32-36) g/dl RDW 15.7 H (11.5-14.5) % Band Neutrophils % (0-5) % Monocytes (0-9) % BUN 21 H (9-20) mg/dL Creatinine 1.8 H (0.66-1.25) mg/dL POC Glucose 129 H (70-110) mg/dL Random Glucose 66 L (70-110) mg/dL Calcium 7.8 L (8.5-10.1) mg/dL Total Protein 5.8 L (6.3-8.2) gm/dL Albumin 2.6 L (3.5-5.0) gm/dL Albumin/Globulin Ratio 0.8 L (1.1-1.8) 11/08/16 11/08/16 11/09/16 Range/Units 17:51 21:36 07:59 WBC (4.2-12.2) K/uL RBC (4.40-5.70) M/uL Hgb (14.0-18.0) gm/dl Hct (42.0-52.0) % MCHC (32-36) g/dl RDW (11.5-14.5) % Band Neutrophils % (0-5) % Monocytes (0-9) % BUN (9-20) mg/dL Creatinine (0.66-1.25) mg/dL POC Glucose 160 H 307 H 54 L (70-110) mg/dL Random Glucose (70-110) mg/dL Calcium (8.5-10.1) mg/dL Total Protein (6.3-8.2) gm/dL Albumin (3.5-5.0) gm/dL Albumin/Globulin Ratio (1.1-1.8) 11/09/16 11/09/16 11/09/16 Range/Units 08:30 11:45 17:23 WBC (4.2-12.2) K/uL RBC (4.40-5.70) M/uL Hgb (14.0-18.0) gm/dl Hct (42.0-52.0) % MCHC (32-36) g/dl RDW (11.5-14.5) % Band Neutrophils % (0-5) % Monocytes (0-9) % BUN (9-20) mg/dL Creatinine (0.66-1.25) mg/dL POC Glucose 115 H 258 H 166 H (70-110) mg/dL Random Glucose (70-110) mg/dL Calcium (8.5-10.1) mg/dL Total Protein (6.3-8.2) gm/dL Albumin (3.5-5.0) gm/dL Albumin/Globulin Ratio (1.1-1.8) 11/09/16 11/10/16 11/10/16 Range/Units 21:48 12:04 17:14 WBC (4.2-12.2) K/uL RBC (4.40-5.70) M/uL Hgb (14.0-18.0) gm/dl Hct (42.0-52.0) % MCHC (32-36) g/dl RDW (11.5-14.5) % Band Neutrophils % (0-5) % Monocytes (0-9) % BUN (9-20) mg/dL Creatinine (0.66-1.25) mg/dL POC Glucose 291 H 205 H 191 H (70-110) mg/dL Random Glucose (70-110) mg/dL Calcium (8.5-10.1) mg/dL Total Protein (6.3-8.2) gm/dL Albumin (3.5-5.0) gm/dL Albumin/Globulin Ratio (1.1-1.8) 11/10/16 11/11/16 11/11/16 Range/Units 21:40 06:10 06:10 WBC 12.6 H (4.2-12.2) K/uL RBC 2.67 L (4.40-5.70) M/uL Hgb 8.0 L (14.0-18.0) gm/dl Hct 25.5 L (42.0-52.0) % MCHC 31.4 L (32-36) g/dl RDW 15.2 H (11.5-14.5) % Band Neutrophils % (0-5) % Monocytes (0-9) % BUN 21 H (9-20) mg/dL Creatinine 1.7 H (0.66-1.25) mg/dL POC Glucose 305 H (70-110) mg/dL Random Glucose 190 H (70-110) mg/dL Calcium 7.9 L (8.5-10.1) mg/dL Total Protein 6.0 L (6.3-8.2) gm/dL Albumin 2.7 L (3.5-5.0) gm/dL Albumin/Globulin Ratio 0.8 L (1.1-1.8) 11/11/16 11/11/16 11/11/16 Range/Units 08:04 11:30 17:00 WBC (4.2-12.2) K/uL RBC (4.40-5.70) M/uL Hgb (14.0-18.0) gm/dl Hct (42.0-52.0) % MCHC (32-36) g/dl RDW (11.5-14.5) % Band Neutrophils % (0-5) % Monocytes (0-9) % BUN (9-20) mg/dL Creatinine (0.66-1.25) mg/dL POC Glucose 172 H 185 H 272 H (70-110) mg/dL Random Glucose (70-110) mg/dL Calcium (8.5-10.1) mg/dL Total Protein (6.3-8.2) gm/dL Albumin (3.5-5.0) gm/dL Albumin/Globulin Ratio (1.1-1.8) 11/11/16 11/12/16 11/12/16 Range/Units 20:57 11:41 17:06 WBC (4.2-12.2) K/uL RBC (4.40-5.70) M/uL Hgb (14.0-18.0) gm/dl Hct (42.0-52.0) % MCHC (32-36) g/dl RDW (11.5-14.5) % Band Neutrophils % (0-5) % Monocytes (0-9) % BUN (9-20) mg/dL Creatinine (0.66-1.25) mg/dL POC Glucose 308 H 270 H 173 H (70-110) mg/dL Random Glucose (70-110) mg/dL Calcium (8.5-10.1) mg/dL Total Protein (6.3-8.2) gm/dL Albumin (3.5-5.0) gm/dL Albumin/Globulin Ratio (1.1-1.8) 11/13/16 11/13/16 11/13/16 Range/Units 00:11 07:03 17:00 WBC (4.2-12.2) K/uL RBC (4.40-5.70) M/uL Hgb (14.0-18.0) gm/dl Hct (42.0-52.0) % MCHC (32-36) g/dl RDW (11.5-14.5) % Band Neutrophils % (0-5) % Monocytes (0-9) % BUN (9-20) mg/dL Creatinine (0.66-1.25) mg/dL POC Glucose 277 H 178 H 327 H (70-110) mg/dL Random Glucose (70-110) mg/dL Calcium (8.5-10.1) mg/dL Total Protein (6.3-8.2) gm/dL Albumin (3.5-5.0) gm/dL Albumin/Globulin Ratio (1.1-1.8) 11/13/16 11/14/16 11/14/16 Range/Units 23:00 06:35 06:35 WBC 13.6 H (4.2-12.2) K/uL RBC 2.94 L (4.40-5.70) M/uL Hgb 8.8 L (14.0-18.0) gm/dl Hct 27.8 L (42.0-52.0) % MCHC 31.7 L (32-36) g/dl RDW 15.4 H (11.5-14.5) % Band Neutrophils % (0-5) % Monocytes 10.0 H (0-9) % BUN (9-20) mg/dL Creatinine 1.5 H (0.66-1.25) mg/dL POC Glucose 171 H (70-110) mg/dL Random Glucose 111 H (70-110) mg/dL Calcium (8.5-10.1) mg/dL Total Protein (6.3-8.2) gm/dL Albumin 2.9 L (3.5-5.0) gm/dL Albumin/Globulin Ratio 0.8 L (1.1-1.8) 11/14/16 11/14/16 11/14/16 Range/Units 11:30 18:07 22:30 WBC (4.2-12.2) K/uL RBC (4.40-5.70) M/uL Hgb (14.0-18.0) gm/dl Hct (42.0-52.0) % MCHC (32-36) g/dl RDW (11.5-14.5) % Band Neutrophils % (0-5) % Monocytes (0-9) % BUN (9-20) mg/dL Creatinine (0.66-1.25) mg/dL POC Glucose 245 H 228 H 335 H (70-110) mg/dL Random Glucose (70-110) mg/dL Calcium (8.5-10.1) mg/dL Total Protein (6.3-8.2) gm/dL Albumin (3.5-5.0) gm/dL Albumin/Globulin Ratio (1.1-1.8) Condition at Discharge: (2) Stable Discharge Medications - Discharge Medications Prescriptions: Hydralazine HCl [Apresoline] 25 mg PO Q8HR #90 Amlodipine Besylate [Norvasc] 5 mg PO DAILY #30 tab Carvedilol [Coreg] 6.25 mg PO BID #60 tablet Clonidine [Catapres-Tts 1] 1 each TD WEEKLY #4 patch.tdwk Insulin Detemir [Levemir Flextouch] 17 unit SQ BID #2 Metformin HCl [Glucophage Ir] 1,000 mg PO BIDWM #120 Nystatin [Nystop] 15 gm TP BID #1 tube Oxycodone HCl/Acetaminophen [Percocet 10mg/325mg] 1 each PO Q6H PRN #30 PRN Reason: MODERATE TO SEVERE PAIN Pantoprazole Sodium [Protonix] 40 mg PO DAILYAC #30 Home Medications: Ambulatory Orders Methylphenidate HCl [Ritalin] 5 mg PO QAM 10/31/16 [Last Taken Unknown] Amlodipine Besylate [Norvasc] 5 mg PO DAILY #30 tab 11/18/16 [Last Taken Unknown ] Carvedilol [Coreg] 6.25 mg PO BID #60 tablet 11/18/16 [Last Taken Unknown] Clonidine [Catapres-Tts 1] 1 each TD WEEKLY #4 patch.tdwk 11/18/16 [Last Taken Unknown] Hydralazine HCl [Apresoline] 25 mg PO Q8HR #90 11/18/16 [Last Taken Unknown] Insulin Detemir [Levemir Flextouch] 17 unit SQ BID #2 11/18/16 [Last Taken Unknown] Metformin HCl [Glucophage Ir] 1,000 mg PO BIDWM #120 11/18/16 [Last Taken Unknown] Nystatin [Nystop] 15 gm TP BID #1 tube 11/18/16 [Last Taken Unknown] Oxycodone HCl/Acetaminophen [Percocet 10mg/325mg] 1 each PO Q6H PRN #30 [Last Taken Unknown] Pantoprazole Sodium [Protonix] 40 mg PO DAILYAC #30 11/18/16 [Last Taken Unknown] Discharge Plan - Discharge Instructions Activity at Discharge: As Per Physical Therapy Diet at Discharge: Diabetic Diet Additional Instructions: Follow up with Nacho Monteiro DO. Why: Hospital follow-up on Nov 27 at 9:15 am. Contact information: [address] [place] [id number] Schedule an appointment as soon as possible for a visit with Krysta Warren , PhD. Specialty: Psychology Why: neuropsychology follow up Contact information: [id number] [address] Diabetic Medications: Metfromin 1000 mg twice daily Levemir 17 Units twice daily (morning and night) Discuss restarting Glipizide with Dr. Monteiro. Diabetic diet Be sure to check blood sugar level fasting in the morning and 2 hours after each of your meals. Blood pressure medications: Will stop Clonidine patches. He will continue: Norvasc 5 mg PO Daily Coreg 6.25 mg twice daily hydralazine 25 mg every 8 hours - HE WILL NO LONGER BE USING THE WEEKLY TRANSDERMAL PATCHES Other medications: Aranesp- noting kidney function has normalized, you may not require this any longer. Please get labs re checked in 3 days. Follow up with Dr. Monteiro to determine based on lab results whether you need this medication any longer. Percocet- use for pain pantoprazole- this is for stomach protection Please return if you're experiencing any new pain, dizziness, lightheadedness, fever, chills, diff breathing or chest pain, etc.
[2016-11-15] MEDS: NYSTATIN 15 GM POWDER TP SCH ×2 (11:13→22:03)
[2016-11-15] MEDS: LEVEMIR FLEXTOUCH 100 UNIT/ML INSULIN PEN SQ SCH ×2 (11:15→22:01)
[2016-11-15] MEDS: AMLODIPINE BESYLATE 5MG TAB PO SCH (11:24)
[2016-11-15] MEDS: ASPIRIN 81 MG TABEC PO SCH (11:24)
[2016-11-15] MEDS: MULTIVITAMINS/MINERALS TABLET PO SCH (11:24)
[2016-11-15] MEDS: DARBEPOETIN 100 MCG/0.5 ML SQ SCH (11:25)
[2016-11-15] MEDS: CARVEDILOL 3.125 MG TABLET PO SCH ×2 (11:26→21:59)
--- NOTE | 2016-11-15 16:33 | Rehab Discharge Summary ---
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 due to groin infection on 10/07/16.) Past Medical/Surgical Hx: PAST MEDICAL/SURGICAL HISTORY Past Surgical History hemorrhoidectomy x's 2. cholecystectomy, knee scope bilateral, exploratory laparotomy -> appendectomy, colonscopy rtbka, rtaka inguinal hernia, umbilical hernia PMH - Respiratory Hx Respiratory Disorders Yes Hx Bronchitis Yes: 01/08/2015 was on anbx and steroid PMH - Cardiovascular Hx Cardiovascular Disorders Yes Hx Cardiac Catheterization Yes Hx Heart Attack Yes: 2007 Hx Coronary Stent Yes: x's 2 Comment: no problems since 2007, hasn't had to see cardiology in 5years PMH - Neuro Hx Neurological Disorders Yes Hx Neuropathy Yes: bilateral neuropathy PMH - GI Hx Gastrointestinal Disorders No Hx Abdominal Pain Yes: RUQ Hx Hiatal Hernia Yes PMH - Hx Genitourinary Disorders No PMH - Endocrine Hx Endocrine Disorders Yes Hx Diabetes Yes Hx Thyroid Disease No Hx of NIDDM Yes: well controlled PMH - Musculoskeletal Hx Musculoskeletal Disorders Yes Hx Arthritis Yes PMH - Psych Hx Psychiatric Problems No PMH - Hematology/Oncology Hx Hematology/Oncology No Disorders Hx Anemia Yes Premorbid Status: Detail (Pt lives with in a 3rd floor apartment, no elevator. He reports he "butt bumps" up and down the stairs with assist from his and son. He is Ind with meal prep and washing dishes. His is responsible for home mgmt and laundry. He has not ambulated since his BKA in August,. He has a wheelchair and a 2 wheeled walker. He has a tub/shower combination with a hand held shower and tub bench but he is getting an extended tub bench as his current one is too small. He has a standard height toilet and uses the sink for transfers. His assists with showering and dressing but he is hoping to be Ind.) Social History: Detail (Pt reports having 7 children.) Precautions: [place], Fall - Time With Patient Total Time Spent With Patient (Min): 25 Treatment Procedures: Detail (PT re-evaluation, wheelchair mobility/fitting.) Subjective Information - Subjective Information Per Patient (The patient had no complaints. The patient's complaints of pain were variable.) Objective Data - Mental Status Patient Orientation: Oriented x3 - Visual Perception Appears within normal limits for therapeutic activities - ROM Not within normal limits (L LE AROM is WNL. Residual limb is WNL except for hip extension -6 degrees.) - Strength/Tone Within normal limits (L LE strength is generally 4+/ 5 in ankle musculature and 5/5 in hip and knee musculature. R hip musculature is 4+/5.) - Bed Mobility Independent (The patient is independent with supine to and from sit , rolling and scooting up in bed.) - Transfers Independent (The patient is independent with sit to and from stand transfer and wheelchair to bed pivot transfer. The patient was independent with car transfer with minimal assist of 1 to handle the wound vac.) - Balance Balance Sitting: Good Balance Standing: Poor (The patient requires walker for support due to AKA.) - Gait Detail (The patient ambulates with wheeled walker a distance of 5 to 10 feet x 1 ( as required in wheelchair inacessible bathroom at home. The patient bumps up 3 flights of stairs as required in his apartment. The patient refused to practice the stair bumping technique, stating he could do it.) - Special Tests Yes (Wheelchair mobility: The patient was independent with propelling wheelchair a distance of 200 feet plus.) Therapy Assessment - Therapy Assessment Detail (The patient was independent with all transfers, bed mobility and ambulated short distances with wheeled walker with CG/supervision for safety. The patient exhibited improved LE strength and residual limb AROM.) Patient Education - Patient Education Teaching Topic: Equipment Use (The patient was ordered his own wheelchair and was independent with all aspects of wheelchair mobility.), Exercise/Activity ( The patient was instructed in a LE strengthening exercise program, including AKA stretching exercises.) Response: Return Demonstration Teaching Method: Discussion, Demonstration, Handout Teaching Recipient: Patient, Family Barriers To Learning: Age Related Problem List - Problem List Physical Therapy Problem List: Detail (1) Non ambulatory 2) Supervision/contact gaurding with transfers for safety. 3) Decreased LE strength) Occupational Therapy Problem List: Detail (1. Decreased Ind with total body dressing 2. Decreased Ind with showering 3. Decreased endurance needed for safe and Ind return home.) Goals - Goals Physical Therapy Goals: PT GOALS MET: 1) Assess R residual limb ROM and Strength. 2) The patient will be independent with all transfers. 3) The patient will be independent with AKA HEP and follow proper AKA prosthesis preparation precautions. 4) The patient will ambulate with wheeled walker household distances with supervision for safety. 5) Increase LE strength in weakened muscles 1/3 muscle grade. Occupational Therapy Goals: 1. Pt will be Ind with total body dressing 2. Pt will be Ind with showering 3. Pt will demonstrated improved endurance to allow safe and Ind ADLs/IADLs. Plan - Plan Physical Therapy Plan: PT is discharging from [facility] to home and is to receive Home PT services. Occupational Therapy Plan: OT 2-4 days per week to address self cares, functional mobility and overall endurance.
[2016-11-15] MEDS: ATORVASTATIN 20 MG TABLET PO SCH (21:59)
[2016-11-16] MEDS: PANTOPRAZOLE SODIUM 40 MG TABLET PO SCH (06:18)
[2016-11-16] MEDS: PATIENT OWN MED: METHYLPHENIDATE 5 MG PO SCH ×2 (06:18→12:29)
[2016-11-16] MEDS: HYDRALAZINE HCL 25 MG TABLET PO SCH ×3 (06:18→23:26)
[2016-11-16] MEDS: METFORMIN 500 MG TABLET PO SCH ×2 (08:33→18:37)
[2016-11-16] MEDS: METOCLOPRAMIDE 10 MG TABLET PO SCH ×3 (08:33→18:38)
[2016-11-16] MEDS: NOVOLOG FLEXPEN (INSULIN ASPART) 100 UNITS/ML SQ SCH ×3 (08:33→18:38)
[2016-11-16] MEDS: LEVEMIR FLEXTOUCH 100 UNIT/ML INSULIN PEN SQ SCH ×2 (10:20→23:28)
[2016-11-16] MEDS: AMLODIPINE BESYLATE 5MG TAB PO SCH (10:21)
[2016-11-16] MEDS: MULTIVITAMINS/MINERALS TABLET PO SCH (10:21)
[2016-11-16] MEDS: CARVEDILOL 3.125 MG TABLET PO SCH ×2 (10:22→23:26)
[2016-11-16] MEDS: ASPIRIN 81 MG TABEC PO SCH (10:22)
[2016-11-16] MEDS: NYSTATIN 15 GM POWDER TP SCH ×2 (10:22→23:24)
[2016-11-16] MEDS: ATORVASTATIN 20 MG TABLET PO SCH (23:28)
[2016-11-17] MEDS: HYDRALAZINE HCL 25 MG TABLET PO SCH ×3 (06:01→22:26)
[2016-11-17] MEDS: PANTOPRAZOLE SODIUM 40 MG TABLET PO SCH (06:01)
[2016-11-17] MEDS: PATIENT OWN MED: METHYLPHENIDATE 5 MG PO SCH ×2 (06:01→12:29)
[2016-11-17 06:09] LABS: HEMATOCRIT 27.3 % (42.0-52.0); HEMOGLOBIN 8.8 gm/dl (14.0-18.0); MEAN CELL VOLUME 94.1 fl (81-97); MEAN CORPUSCULAR HEMOGLOBIN 30.3 pg (27-33); MEAN CORPUSCULAR HGB CONC 32.2 g/dl (32-36); MEAN PLATELET VOLUME 8.8 fl (7.4-10.4); PLATELET COUNT 343 K/uL (130-400); RED CELL DISTRIBUTION WIDTH 15.3 % (11.5-14.5); WHITE BLOOD COUNT W/O DIFF 13.5 K/uL (4.2-12.2)
[2016-11-17 06:18] LABS: ALB/GLOB RATIO 0.8 (1.1-1.8); ALBUMIN 2.9 gm/dL (3.5-5.0); ALKALINE PHOSPHATASE 102 U/L (38-126); ALT/SGPT 39 U/L (21-72); ANION GAP 8.1 (7-16); AST/SGOT 23 U/L (17-59); BILIRUBIN,TOTAL 0.34 mg/dL (0.2-1.3); BLOOD UREA NITROGEN 18 mg/dL (9-20); CARBON DIOXIDE 25.9 mmol/L (22-30); CREATININE 1.2 mg/dL (0.66-1.25); EST GLOMERULAR FILTRATION RATE > 60 ml/min; GLUCOSE,RANDOM 208 mg/dL (70-110); TOTAL PROTEIN 6.4 gm/dL (6.3-8.2)
[2016-11-17 06:21] LABS: HYPOCHROMIA 1+; PLATELET ESTIMATE NORMAL (NORMAL)
[2016-11-17] MEDS: NOVOLOG FLEXPEN (INSULIN ASPART) 100 UNITS/ML SQ SCH ×3 (08:32→18:14)
[2016-11-17] MEDS: METOCLOPRAMIDE 10 MG TABLET PO SCH ×3 (09:11→18:22)
[2016-11-17] MEDS: METFORMIN 500 MG TABLET PO SCH ×2 (09:11→18:22)
[2016-11-17] MEDS: AMLODIPINE BESYLATE 5MG TAB PO SCH (09:52)
[2016-11-17] MEDS: MULTIVITAMINS/MINERALS TABLET PO SCH (09:52)
[2016-11-17] MEDS: CARVEDILOL 3.125 MG TABLET PO SCH ×2 (09:52→22:26)
[2016-11-17] MEDS: ASPIRIN 81 MG TABEC PO SCH (09:53)
[2016-11-17] MEDS: LEVEMIR FLEXTOUCH 100 UNIT/ML INSULIN PEN SQ SCH ×2 (09:53→22:26)
[2016-11-17] MEDS: NYSTATIN 15 GM POWDER TP SCH ×2 (09:55→22:39)
[2016-11-17] MEDS: ATORVASTATIN 20 MG TABLET PO SCH (22:26)
[2016-11-18] MEDS: PANTOPRAZOLE SODIUM 40 MG TABLET PO SCH (06:24)
[2016-11-18] MEDS: HYDRALAZINE HCL 25 MG TABLET PO SCH (06:24)
[2016-11-18] MEDS: PATIENT OWN MED: METHYLPHENIDATE 5 MG PO SCH (06:26)
[2016-11-18] MEDS: OXYCODONE/APAP 10MG-325MG TABLET PO PRN (08:25)
[2016-11-18] MEDS: NOVOLOG FLEXPEN (INSULIN ASPART) 100 UNITS/ML SQ SCH (08:27)
[2016-11-18] MEDS: LEVEMIR FLEXTOUCH 100 UNIT/ML INSULIN PEN SQ SCH (08:29)
[2016-11-18] MEDS: METFORMIN 500 MG TABLET PO SCH (08:32)
[2016-11-18] MEDS: METOCLOPRAMIDE 10 MG TABLET PO SCH (08:32)
[2016-11-18] MEDS: MULTIVITAMINS/MINERALS TABLET PO SCH (09:53)
[2016-11-18] MEDS: AMLODIPINE BESYLATE 5MG TAB PO SCH (09:54)
[2016-11-18] MEDS: CARVEDILOL 3.125 MG TABLET PO SCH (09:54)
[2016-11-18] MEDS: ASPIRIN 81 MG TABEC PO SCH (09:54)
[2016-11-18] MEDS: CLONIDINE TTS-0.1MG PATCH TD SCH (09:56)
[2016-11-18] MEDS: [UNRECOGNIZED DRUG - OTHER] TOP SCH (09:56)
[2016-11-18] MEDS: CLONIDINE TOP SCH (09:56)
--- NOTE | 2016-11-18 09:56 | Rehab Discharge Summary ---
Patient Information - Patient Information Diagnosis: deconditioning d/t AKA Ordered Treatment: OT Evaluate and Treat Surgery: Yes (right BKA 10/03/16, right AKA 10/15/16) Past Medical/Surgical Hx: PAST MEDICAL/SURGICAL HISTORY Past Surgical History hemorrhoidectomy x's 2. cholecystectomy, knee scope bilateral, exploratory laparotomy -> appendectomy, colonscopy rtbka, rtaka inguinal hernia, umbilical hernia PMH - Respiratory Hx Respiratory Disorders Yes Hx Bronchitis Yes: 01/08/2015 was on anbx and steroid PMH - Cardiovascular Hx Cardiovascular Disorders Yes Hx Cardiac Catheterization Yes Hx Heart Attack Yes: 2007 Hx Coronary Stent Yes: x's 2 Comment: no problems since 2007, hasn't had to see cardiology in 5years PMH - Neuro Hx Neurological Disorders Yes Hx Neuropathy Yes: bilateral neuropathy PMH - GI Hx Gastrointestinal Disorders No Hx Abdominal Pain Yes: RUQ Hx Hiatal Hernia Yes PMH - Hx Genitourinary Disorders No PMH - Endocrine Hx Endocrine Disorders Yes Hx Diabetes Yes Hx Thyroid Disease No Hx of NIDDM Yes: well controlled PMH - Musculoskeletal Hx Musculoskeletal Disorders Yes Hx Arthritis Yes PMH - Psych Hx Psychiatric Problems No PMH - Hematology/Oncology Hx Hematology/Oncology No Disorders Hx Anemia Yes Premorbid Status: Detail (Pt lives with in a 3rd floor apartment, no elevator. He reports he "butt bumps" up and down the stairs with assist from his and son. He is Ind with meal prep and washing dishes. His is responsible for home mgmt and laundry. He has not ambulated since his BKA in August,. He has a wheelchair and a 2 wheeled walker. He has a tub/shower combination with a hand held shower and tub bench but he is getting an extended tub bench as his current one is too small. He has a standard height toilet and uses the sink for transfers. His assists with showering and dressing but he is hoping to be Ind.) Social History: Detail (Pt reports having 7 children.) Precautions: Trade, Fall Subjective Information - Subjective Information Per Patient Objective Data - Pain Pain Present: No - Mental Status Patient Orientation: Oriented x3 - Visual Perception Appears within normal limits for therapeutic activities (Pt wears glasses for reading.) - ROM Within normal limits (Kaz UE AROM WNL throughout) - Strength/Tone Within normal limits (Kaz UE MMT 5/5) - Coordination Appears within normal limits for therapeutic activities - Bed Mobility Independent - Transfers Independent - Balance Balance Sitting: Good Balance Standing: Good - Sensation Intact - ADL's/IADL's Detail (Pt Ind with showering and dressing using modified techniques.) Therapy Assessment - Therapy Assessment Detail (Pt is safe and Ind with ADLs and functional mobility.) Problem List - Problem List Physical Therapy Problem List: Detail (1) Non ambulatory 2) Supervision/contact gaurding with transfers for safety. 3) Decreased LE strength) Occupational Therapy Problem List: Detail (1. Decreased Ind with total body dressing 2. Decreased Ind with showering 3. Decreased endurance needed for safe and Ind return home.) Goals - Goals Physical Therapy Goals: PT GOALS MET: 1) Assess R residual limb ROM and Strength. 2) The patient will be independent with all transfers. 3) The patient will be independent with AKA HEP and follow proper AKA prosthesis preparation precautions. 4) The patient will ambulate with wheeled walker household distances with supervision for safety. 5) Increase LE strength in weakened muscles 1/3 muscle grade. Occupational Therapy Goals: Goals Met: 1. Pt will be Ind with total body dressing 2. Pt will be Ind with showering 3. Pt will demonstrate improved endurance to allow safe and Ind ADLs/IADLs. Prognosis - Prognosis Good Plan - Plan Physical Therapy Plan: PT is discharging from [facility] to home and is to receive Home PT services. Occupational Therapy Plan: Pt discharging home with home OT/PT to assess ADLs/ IADLs and functional mobility in the home.
== END 2016-11-18 11:45 | disposition home health service (06) | DRG 948 ==
LOC: MEDSURG 16:31
PROVIDERS: ADMIT Family Medicine; ATTEND Family Medicine
DX: R53.81 Other malaise (principal); Z89.611 Acquired absence of right leg above knee; I25.10 Atherosclerotic heart disease of native coronary artery without angina pectoris; E11.9 Type 2 diabetes mellitus without complications; Z79.4 Long term (current) use of insulin; I25.2 Old myocardial infarction; N18.9 Chronic kidney disease, unspecified; I10 Essential (primary) hypertension; D64.89 Other specified anemias; Z78.9 Other specified health status; I73.9 Peripheral vascular disease, unspecified; Y83.8 Other surgical procedures as the cause of abnormal reaction of the patient, or of later complication, without mention of misadventure at the time of the procedure
CPT/HCPCS: 36416; 80048; 80053; 82948; 85027; 97110; 97165; 97530; 97535; 99306; 99309; 99316; J0881

== ENCOUNTER 2018-05-22 11:39 | Emergency (ER) | payer MEDICARE ==
[2018-05-22] MEDS ORDERED: DILTIAZEM 25MG/5ML VIAL IV ONE (12:05)
[2018-05-22 12:17] LABS: BASO % 0.2 % (0-6); EOS % 1.7 % (0-6); GRAN % 69.9 % (47-80); HEMATOCRIT 42.7 % (42.0-52.0); HEMOGLOBIN 13.6 gm/dl (14.0-18.0); LYMPH % 17.7 % (16-45); MEAN CELL VOLUME 96.4 fl (81-97); MEAN CORPUSCULAR HEMOGLOBIN 30.6 pg (27-33); MEAN CORPUSCULAR HGB CONC 31.9 g/dl (32-36); MEAN PLATELET VOLUME 9.9 fl (7.4-10.4); MONO % 10.5 % (0-9); PLATELET COUNT 253 K/uL (130-400); RED BLOOD COUNT 4.43 M/uL (4.40-5.70); RED CELL DISTRIBUTION WIDTH 14.3 % (11.5-14.5); WHITE BLOOD COUNT W/O DIFF 12.7 K/uL (4.2-12.2)
[2018-05-22] MEDS ORDERED: DILTIAZEM HCL 125 MG in 0.9 % SODIUM CHLORIDE 100ML 100 ML IV SCH (12:30)
--- NOTE | 2018-05-22 12:30 | Emergency Department Record ---
History of Present Illness - General Chief Complaint: Difficulty Breathing Stated Complaint: LAVINIA Time Seen by Provider: 05/22/18 12:22 Source: Patient Mode of Arrival: Wheelchair Limitations: No limitations - History of Present Illness Initial Comments: pt states he has been having a rapid hr and palpitations and sob since friday, 3 days,. he denies cp. he has hx of an mi 11 years ago but no hx of afib MD Complaint: Shortness of breath Onset/Timin -: Hour(s) Severity: Moderate Consistency: Constant Improves With: Nothing Worsens With: Nothing Known History Of: Diabetes, Other Associated Symptoms: Cough, Palpitations - Related Data Home Oxygen Therapy: No Home Medications Medication Instructions Recorded Confirmed Last Taken Aspirin [Adult Aspirin Regimen] 81 mg PO DAILY 05/22/18 05/22/18 05/22/18 Atorvastatin Calcium [Lipitor] 10 mg PO DAILY 05/22/18 05/22/18 05/22/18 Cholecalciferol (Vitamin D3) 2,000 unit PO DAILY 05/22/18 05/22/18 05/22/18 [Vitamin D3] Cinnamon Bark [Cinnamon] 500 mg PO DAILY 05/22/18 05/22/18 05/22/18 Clopidogrel Bisulfate [Clopidogrel] 75 mg PO DAILY 05/22/18 05/22/18 05/22/18 Insulin Regular, Human [Novolin R] 64 units SQ ASDIR 05/22/18 05/22/18 05/22/18 Previous Rx's Medication Instructions Recorded Carvedilol [Coreg] 6.25 mg PO BID #60 tablet 11/18/16 Metformin HCl [Glucophage Ir] 1,000 mg PO BIDWM #120 11/18/16 Pantoprazole Sodium [Protonix] 40 mg PO DAILYAC #30 11/18/16 Allergies Allergy/AdvReac Type Severity Reaction Status Date / Time No Known Drug Allergies Allergy Verified 05/22/18 11:51 Travel Screening - Travel/Exposure Within Last 30 Days Have you traveled within the last 30 days?: No - Travel/Exposure Within Last Year Have you traveled outside the [place] in the last year?: No - Additonal Travel Details Have you been exposed to anyone with a communicable illness?: No - Travel Symptoms Symptom Screening: None Review of Systems Reviewed: No additional complaints except as noted below Constitutional: Reports: As per HPI. Denies: Chills, Fever, Malaise, Night sweats, Weakness, Weight change Eyes: Reports: As per HPI. Denies: Eye discharge, Eye pain, Photophobia, Vision change ENT: Reports: As per HPI. Denies: Congestion, Dental pain, Ear pain, Epistaxis , Hearing loss, Throat pain Respiratory: Reports: As per HPI, Dyspnea, Wheezes. Denies: Cough, Hemoptysis, Stridor Cardiovascular: Reports: As per HPI, Palpitations. Denies: Arrhythmia, Chest pain, Dyspnea on exertion, Edema, Murmurs, Orthopnea, Paroxysmal nocturnal dyspnea, Rheumatic Fever, Syncope Endocrine: Reports: As per HPI. Denies: Fatigue, Heat or cold intolerance, Polydipsia, Polyuria Gastrointestinal: Reports: As per HPI. Denies: Abdominal pain, Constipation, Diarrhea, Hematemesis, Hematochezia, Melena, Nausea, Vomiting Genitourinary: Reports: As per HPI. Denies: Dysuria, Frequency, Hematuria, Incontinence, Retention, Testicular pain, Testicular mass, Urgency Musculoskeletal: Reports: As per HPI. Denies: Arthralgia, Back pain, Gout, Joint swelling, Myalgia, Neck pain Skin: Reports: As per HPI. Denies: Bruising, Change in color, Change in hair/ nails, Lesions, Pruritus, Rash Neurological: Reports: As per HPI. Denies: Abnormal gait, Confusion, Headache, Numbness, Paresthesias, Seizure, Tingling, Tremors, Vertigo, Weakness Psychiatric: Reports: As per HPI. Denies: Anxiety, Auditory hallucinations, Depression, Homicidal thoughts, Suicidal thoughts, Visual hallucinations Hematological/Lymphatic: Reports: As per HPI. Denies: Anemia, Blood Clots, Easy bleeding, Easy bruising, Swollen glands Past Medical History - SOCIAL HISTORY Smoking Status: Former smoker Alcohol Use: None Drug Use: None - RESPIRATORY Hx Respiratory Disorders: Yes Hx Bronchitis: Yes (01/08/2015 was on anbx and steroid) - CARDIOVASCULAR Hx Cardio Disorders: Yes Hx Cardiac Cath: Yes Hx Heart Attack: Yes (2007) Hx Coronary Stent: Yes (x's 2) Comment:: no problems since 2007, hasn't had to see cardiology in 5years - NEURO Hx Neuro Disorders: Yes Hx Neuropathy: Yes (bilateral neuropathy) - GI Hx GI Disorders: Yes Hx Hiatal Hernia: Yes - Hx Genitourinary Disorders: No - ENDOCRINE Hx Endocrine Disorders: Yes Hx Diabetes: Yes Hx Thyroid Disease: No - MUSCULOSKELETAL Hx Musculoskeletal Disorders: Yes Hx Arthritis: Yes - PSYCH Hx Psych Problems: No - HEMATOLOGY/ONCOLOGY Hx Hematology/Oncology Disorders: Yes Hx Anemia: Yes Hx Blood Transfusions: Yes Family Medical History Any Significant Family History?: Yes Hx Cancer: Father *Cancer Comment: colorectal Hx Diabetes: Father, Brother/Sister Hx Heart Disease: Father Physical Exam - General General Appearance: Alert, Oriented x3, Cooperative, Mild distress - Head Head exam: Normal inspection - Eye Eye exam: Normal appearance, PERRL, EOMI Pupils: Normal accommodation - ENT ENT exam: Normal exam, Mucous membranes moist, Normal external ear exam, Normal orophraynx Ear exam: Normal external inspection. negative: External canal tenderness Nasal Exam: Normal inspection. negative: Discharge, Sinus tenderness Mouth exam: Normal external inspection, Tongue normal Teeth exam: Normal inspection. negative: Dental caries Throat exam: Normal inspection. negative: Tonsillar erythema, Tonsillar exudate - Neck Neck exam: Normal inspection, Full ROM. negative: Tenderness - Respiratory Respiratory exam: Wheezes. negative: Respiratory distress - Cardiovascular Cardiovascular Exam: Normal heart sounds, Irregular rhythm, Tachycardia - GI/Abdominal GI/Abdominal exam: Soft, Normal bowel sounds. negative: Tenderness - Rectal Rectal exam: Deferred - exam: Deferred - Extremities Extremities exam: Normal inspection, Full ROM, Normal capillary refill. negative: Tenderness - Back Back exam: Reports: Normal inspection, Full ROM. Denies: Muscle spasm, Rash noted, Tenderness - Neurological Neurological exam: Alert, CN II-XII intact, Normal gait, Oriented X3 - Psychiatric Psychiatric exam: Normal affect, Normal mood - Skin Skin exam: Dry, Intact, Normal color, Warm Course Vital Signs 05/22/18 12:13 Temperature 97.5 F L Pulse Rate 150 H Respiratory 24 Rate Blood Pressure 124/98 Pulse Ox 97 Medical Decision Making - Lab Data Result diagrams: 05/22/18 11:50 05/22/18 11:50 Lab Results 05/22/18 Range/Units 11:50 WBC 12.7 H (4.2-12.2) K/uL RBC 4.43 (4.40-5.70) M/uL Hgb 13.6 L (14.0-18.0) gm/dl Hct 42.7 (42.0-52.0) % MCV 96.4 (81-97) fl MCH 30.6 (27-33) pg MCHC 31.9 L (32-36) g/dl RDW 14.3 (11.5-14.5) % Plt Count 253 (130-400) K/uL MPV 9.9 (7.4-10.4) fl Gran % 69.9 (47-80) % Lymphocytes % 17.7 (16-45) % Monocytes % 10.5 H (0-9) % Eosinophils % 1.7 (0-6) % Basophils % 0.2 (0-6) % Disposition Disposition: Transfer Clinical Impression: New onset atrial fibrillation Disposition: Acute Care Hospital Transfer [facility] 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
[2018-05-22 12:32] LABS: BLOOD UREA NITROGEN 29 mg/dL (8-23); CREATININE 1.3 mg/dL (0.7-1.2); EST GLOMERULAR FILTRATION RATE 59 mL/min
[2018-05-22 12:35] LABS: GLUCOSE,RANDOM 168 mg/dL (74-109)
[2018-05-22 12:38] LABS: CREATINE PHOSPHOKINASE 184 U/L (39-308)
[2018-05-22 12:40] LABS: CKMB 4.1 ng/mL (<6.73)
[2018-05-22 12:48] LABS: THYROID STIMULATING HORMONE 4.78 uIU/mL (0.270-4.20)
[2018-05-22] MEDS ORDERED: 0.9 % SODIUM CHLORIDE 1,000 ML BAG IV ONE (13:04)
[2018-05-22] MEDS ORDERED: HEPARIN SODIUM 1000 UNIT/1 ML 10ML VIAL IVP ONE (14:37)
[2018-05-22] MEDS ORDERED: HEPARIN SODIUM/D5W 25,000 UNITS/500 ML BAG IV SCH (14:45)
--- NOTE | 2018-05-25 14:43 | CT ANGIOGRAM REPORT ---
EXAM: CTA OF THE CHEST WITH CONTRAST HISTORY: DIFFICULTY IN BREATHING. TECHNIQUE: CTA of the chest was performed after intravenous administration of 80 ml of Omnipaque 350 contrast material. Sagittal and coronal MIP images were performed on an independent workstation. Comparison: None. FINDINGS: No mass or filling defect to suggest pulmonary embolism. The thoracic aorta appears grossly unremarkable. Nonenlarged mediastinal and hilar lymph nodes. Small right pleural effusion. No infiltrate is appreciated. Focal nodular ground glass opacity in the peripheral right upper lobe. The visualized upper abdominal structures are normal. IMPRESSION: 1. NO CTA FINDINGS SUGGESTIVE OF PULMONARY EMBOLISM. 2. SMALL RIGHT PLEURAL EFFUSION. 3. FOCAL NODULAR GROUND GLASS OPACITY IN THE PERIPHERAL RIGHT UPPER LOBE. JOB NUMBER: [id number] [facility]
== END 2018-05-22 17:37 | disposition short-term general hospital (02) ==
LOC: ER 11:39
DX: I48.91 Unspecified atrial fibrillation (principal); R06.00 Dyspnea, unspecified; E11.9 Type 2 diabetes mellitus without complications; I25.2 Old myocardial infarction; Z87.891 Personal history of nicotine dependence; Z79.4 Long term (current) use of insulin
CPT/HCPCS: 99285 ×2; 96365; 96366; 96375; 82550; 85025; 85730; 82553; 80048; 84443; 84484; 85379; 83880; 71275; 93005; 93010; Q9967

== ENCOUNTER 2019-01-09 14:06 | Emergency (ER) | payer MEDICARE ==
[2019-01-09] MEDS ORDERED: ALBUTEROL SULFATE (0.083%) 2.5 MG/3 ML NEB INH ONE (14:22)
[2019-01-09 14:34] LABS: ABSOLUTE NEUTROPHIL COUNT 5.97; HEMATOCRIT 36.5 % (42.0-52.0); HEMOGLOBIN 11.2 gm/dl (14.0-18.0); MEAN CELL VOLUME 98.4 fl (81-97); MEAN CORPUSCULAR HGB CONC 30.7 g/dl (32-36); MEAN PLATELET VOLUME 9.3 fl (7.4-10.4); PLATELET COUNT 234 K/uL (130-400); RED BLOOD COUNT 3.71 M/uL (4.40-5.70); RED CELL DISTRIBUTION WIDTH 14.4 % (11.5-14.5); WHITE BLOOD COUNT W/O DIFF 9.4 K/uL (4.2-12.2)
[2019-01-09 14:36] LABS: MEAN CORPUSCULAR HEMOGLOBIN 30.1 pg (27-33)
--- NOTE | 2019-01-09 14:37 | Emergency Department Record ---
History of Present Illness - General Chief Complaint: Difficulty Breathing Stated Complaint: LAVINIA Time Seen by Provider: 01/09/19 14:12 Source: Patient, Family Mode of Arrival: Wheelchair Limitations: No limitations - History of Present Illness Initial Comments: The patient is here due to a 3 - 4 day hx of SOB and BAE. The symptoms have been getting progressively worse over the last few days. There is no hx of CP, back pain, fever or cough. The patient in the recent past was on Home O2 and ALbuterol Neb tx's but there were stopped 2 months ago. The patient also recently had surgery last week for a L groin abscess. He does have a hx of a R AKA and his L leg has been swelling recently. MD Complaint: Shortness of breath Onset/Timin -: Days(s) Severity: Moderate Severity scale (1-10): 1 Quality: Aching Consistency: Constant Treatments Prior to Arrival: Bronchodilator - Related Data Home Medications Medication Instructions Recorded Confirmed Last Taken Amiodarone HCl [Pacerone] 200 mg PO DAILY 01/09/19 01/09/19 1 Day Ago ~01/08/19 Amlodipine Besylate [Norvasc] 5 mg PO DAILY 01/09/19 01/09/19 1 Day Ago ~01/08/19 Apixaban [Eliquis] 5 mg PO BID 01/09/19 01/09/19 1 Day Ago ~01/08/19 Carvedilol 25 mg PO BID 01/09/19 01/09/19 1 Day Ago ~01/08/19 Cephalexin [Keflex] 500 mg PO BID 01/09/19 01/09/19 1 Day Ago ~01/08/19 Insulin NPH Human Isophane 66 unit SQ BID 01/09/19 01/09/19 1 Day Ago [Humulin N Kwikpen] ~01/08/19 [place]-3 Fatty Acids/Fish Oil [Fish 1 each PO DAILY 01/09/19 01/09/19 1 Day Ago Oil 1,000 mg Capsule] ~01/08/19 Umeclidinium Simpson [Incruse 2 puff IH DAILY 01/09/19 01/09/19 1 Day Ago Ellipta] ~01/08/19 Previous Rx's Medication Instructions Recorded Carvedilol [Coreg] 6.25 mg PO BID #60 tablet 11/18/16 Pantoprazole Sodium [Protonix] 40 mg PO DAILYAC #30 11/18/16 Allergies Allergy/AdvReac Type Severity Reaction Status Date / Time No Known Drug Allergies Allergy Verified 01/09/19 14:28 Travel Screening - Travel/Exposure Within Last 30 Days Have you traveled within the last 30 days?: No - Travel/Exposure Within Last Year Have you traveled outside the [place] in the last year?: No - Additonal Travel Details Have you been exposed to anyone with a communicable illness?: No - Travel Symptoms Symptom Screening: None Review of Systems Constitutional: Denies: Chills, Fever Eyes: Denies: Eye discharge ENT: Denies: Congestion Respiratory: Denies: Cough, Dyspnea Cardiovascular: Denies: Arrhythmia, Chest pain Past Medical History - SOCIAL HISTORY Smoking Status: Former smoker Alcohol Use: None Drug Use: None - RESPIRATORY Hx Respiratory Disorders: Yes Hx Bronchitis: Yes (01/08/2015 was on anbx and steroid) Hx COPD: Yes Hx Sleep Apnea: Yes Hx of CPAP: Yes - CARDIOVASCULAR Hx Cardio Disorders: Yes Hx Cardiac Cath: Yes Hx Heart Attack: Yes (2007) Hx Palpitations: Yes (A-fib) Hx Coronary Stent: Yes (x's 2) Comment:: no problems since 2007, hasn't had to see cardiology in 5years - NEURO Hx Neuro Disorders: Yes Hx Neuropathy: Yes (bilateral neuropathy) - GI Hx GI Disorders: Yes Hx Hiatal Hernia: Yes - Hx Genitourinary Disorders: No - ENDOCRINE Hx Endocrine Disorders: Yes Hx Diabetes: Yes (IDDM) Hx Thyroid Disease: No - MUSCULOSKELETAL Hx Musculoskeletal Disorders: Yes Hx Arthritis: Yes - PSYCH Hx Psych Problems: No - HEMATOLOGY/ONCOLOGY Hx Hematology/Oncology Disorders: Yes Hx Anemia: Yes Hx Blood Transfusions: Yes Family Medical History Any Significant Family History?: Yes Hx Cancer: Father *Cancer Comment: colorectal Hx Diabetes: Father, Brother/Sister Hx Heart Disease: Father Physical Exam - General General Appearance: Alert, Oriented x3, Cooperative, Mild distress (due to LAVINIA.) - Head Head exam: Atraumatic, Normocephalic, Normal inspection - Eye Eye exam: Normal appearance, PERRL - ENT Throat exam: Normal inspection. negative: Tonsillar erythema, Tonsillar exudate - Neck Neck exam: Normal inspection, Full ROM. negative: Tenderness - Respiratory Respiratory exam: Normal lung sounds bilaterally. negative: Respiratory distres s - Cardiovascular Cardiovascular Exam: Regular rate, Normal rhythm, Normal heart sounds - GI/Abdominal GI/Abdominal exam: Soft, Normal bowel sounds, Other (morbidly obese.). negative: Tenderness - Back Back exam: Denies: Normal inspection - Neurological Neurological exam: Alert. negative: Motor sensory deficit Course Vital Signs 01/09/19 14:14 Temperature 97.9 F Pulse Rate 75 Respiratory 22 Rate Blood Pressure 178/98 Pulse Ox 88 L - Reevaluation(s) Reevaluation #1: The patient is clearly doing well at this time but appears to be in significant heart failure. Due to his multiple medical issues I do feel he will need to go back to [facility] and he does agree with the plan. I then did discuss the case with Dr. Carbone at [facility] and he does accept the patient for admission. 01/09/19 15:28 Reevaluation #2: The patient is doing better at this time. He is resting comfortably and has no complaints at this time. 01/09/19 16:15 Medical Decision Making - Data Complexity MDM Data: Labs Ordered and/or Reviewed, X-Ray Ordered and/or Reviewed, EKG Ordered and/or Reviewed - Lab Data Result diagrams: 01/09/19 14:20 01/09/19 14:20 - EKG Data -: EKG Interpreted by [facility] EKG: No Acute Changes - Radiology Data Radiology results: Report reviewed (CXR: CHF with possible infiltrates lower lobes R>L. Most likely atelectasis from body habitus.) Disposition Disposition: Transfer Clinical Impression: Physical deconditioning CHF (congestive heart failure) Qualifiers: Heart failure type: unspecified Heart failure chronicity: acute Qualified Code(s): I50.9 - Heart failure, unspecified Disposition: Acute Care Hospital Transfer Transfer To: [facility] Reason For Transfer: CHF and RICARDO Accepting Physician: Tona Time Discussed w/Accepting Physician: 15:30 Condition: (2) Stable Forms: Patient Portal Access Time of Disposition: 15:30 Quality - Quality Measures Quality Measures: N/A - Blood Pressure Screening View Details: Yes Does Patient Have Any of the Following: Active Dx of HTN Blood Pressure Classification: Hypertensive Reading Systolic Measurement: 178 Diastolic Measurement: 98 Screening for High Blood Pressure: Patient Exclusion, Hx of HTN [[id number]]
[2019-01-09 14:43] LABS: BILIRUBIN,TOTAL 0.3 mg/dL (0.2-1.0); CREATININE 2.1 mg/dL (0.7-1.2); TOTAL PROTEIN 7.5 g/dL (6.6-8.7)
[2019-01-09 14:47] LABS: INR 1.1; PROTHROMBIN TIME (PATIENT) 11.4 SECONDS (9.5-12.1)
[2019-01-09 14:48] LABS: ALB/GLOB RATIO 0.9 (1.1-1.8); ALBUMIN 3.5 g/dL (4.0-5.0)
[2019-01-09] MEDS ORDERED: FUROSEMIDE IV 40MG/4ML VIAL IVP ONE (14:54)
[2019-01-09 14:59] LABS: THYROID STIMULATING HORMONE 4.63 uIU/mL (0.270-4.20)
--- NOTE | 2019-01-09 15:00 | RADIOLOGY REPORT ---
EXAMINATION: Single View Chest EXAM DATE: 01/09/2019 2:42 PM TECHNIQUE: Single view chest INDICATION: Shortness of breath COMPARISON: 05/22/2018 ENCOUNTER: Not applicable FINDINGS: The heart is enlarged. There is a moderate size right pleural effusion. There is interstitial airspac e disease bilaterally with more focal infiltrate within the right lung base. No pneumothorax. IMPRESSION: Cardiac enlargement with fluid overload, right pleural effusion and right lower lobe infiltrate. Dictated by: Willie Solo MD on 01/09/2019 2:58 PM. .
[2019-01-09 15:10] LABS: ANISOCYTOSIS 1+; PLATELET ESTIMATE NORMAL (NORMAL)
== END 2019-01-09 16:46 | disposition short-term general hospital (02) ==
LOC: ER 14:06
DX: I50.9 Heart failure, unspecified (principal); R53.81 Other malaise; R06.02 Shortness of breath; E11.9 Type 2 diabetes mellitus without complications; I48.91 Unspecified atrial fibrillation; I25.2 Old myocardial infarction; Z87.891 Personal history of nicotine dependence; Z79.01 Long term (current) use of anticoagulants; Z79.4 Long term (current) use of insulin; Z89.612 Acquired absence of left leg above knee
CPT/HCPCS: 71045; 80053; 83880; 84443; 84484; 85027; 85610; 85730; 93005; 93010; 94640; 96374; 99285; J1940; J7613